=== PATIENT | female | born 2000 | race Two or more races ===

== ENCOUNTER 2024-06-09 14:05 | Outpatient (AMB) | payer BC, SELFPAY ==
--- NOTE | 2024-06-09 14:06 | AMB.OBINITIA ---
Vital Signs 06/09/24 14:17 Height 1.63 m Height Method Stated Weight 105.007 kg Weight Measurement Method Standing Scale BMI 39.7 BP 137/88 H Blood Pressure Source Automatic Cuff Blood Pressure Location Left Upper Arm Position Sitting Respiration 17 Pulse 90 Pulse Source Monitor Temp 98.3 F Temp Source Oral Pulse Oximetry (%) 99 Oxygen Delivery Method Room Air Allergies/Home Meds Allergies & Medications Allergies No Known Allergies Allergy (Verified 06/10/24 06:09) Medication Reconciliation No Known Home Medications 06/09/24 [History Confirmed 06/09/24] Intake Visit Data Collection New Patient or Established: New Patient (never been to [facility]) Reason for Visit:: FIRST PART Seen by Clinical Staff ONLY (RN/MA): No Do You Feel Safe at Home: Yes Authorities Contacted: N/A PCP or OBGYN visit in last 3 months: Yes Date of Last PCP or OBGYN visit: 05/07/24 Hx Now: Yes Are you currently on any form of Control: No Last menstrual period: 03/10/24 Pain Present Currently: No Pain Scale Used: Frey-Valenzuela/Numerical Pain scale:: 0 Smoking Status Smoking Status: Never smoker Questionnaires Covid-19 Vaccine Questionnaire Has patient been vacinated for Covid-19 Have you been vacinated for Covid-19: No PHQ-9 PHQ-2 Over the last 2 weeks, how often have you been bothered by any of the following problems? 1. Little interest or pleasure in doing things: not at all 2. Feeling down, depressed, or hopeless: not at all Total score: 0 Depression screen completed yes Social History Living Situation History Marital Status: Single Lives With: Family Housing: House Tobacco History Smoking Status: Never smoker Alcohol History Alcohol Intake: Never Substance Use History Substance Use: NO Domestic Abuse History Do You Feel Safe at Home: Yes Past Medical History Past Medical History Have you ever been diagnosed with any of the following: Neurological Problems Cerebrovascular Accident (CVA): No Transient Ischemic Attacks (TIA): No Dementia: No Alzheimer's Disease: No Parkinson's Disease: No Brain Tumor: No Meningitis: No Seizures: No Epilepsy: No Multiple Sclerosis: No Cerebral Palsy: No Amyotrophic Lateral Sclerosis (ALS/Maliha Gehrig's): No Guillain-[place] Syndrome: No Spina Bifida: No Paralysis: No Peripheral Neuropathy: No Jasso's Palsy: No Subdural Hematoma: No Migraine: No Head Trauma: No Spinal Cord Injury: No Traumatic Brain Injury: No Cardiology Problems Myocardial Infarction: No Cardiac Arrhythmia: No Atrial Fibrillation: No Angina: No Heart Murmur: No Coronary Artery Disease: No Atherosclerotic Heart Disease: No Peripheral Vascular Disease: No Hypercholesterolemia: No Aneurysm: No Congestive Heart Failure: No Congenital Heart Disease: No Valvular Heart Disease: No Rheumatic Fever: No Cardiomyopathy: No Edema: No Pericarditis: No Cellulitis: No Deep Vein Thrombosis: No Hypertension: No Hypotension: No Varicose Veins: No OB Initial Visit Menstrual History Menstrual reliability: definite Flow: normal Menstrual regularity: regular Monthly: Yes Age at menarche: 10 On control pills at conception: No Date of positive home test: 05/07/24 Associated symptoms (LMP): Reports nausea, fatigue and breast tenderness Infection History & Risk Evaluation History of STDs: none HIV risk evaluation: low risk Hepatitis B risk evaluation: low risk Patient or partner has history of Genital Herpes: No Varicella/chicken pox status: unknown Genetic Screening & History Genetic Screening/Teratology Counseling - Includes patient, baby's father, or anyone in either family with: 1. Patient's age 35 years or older as of estimated date of delivery: No 2. Thalassemia (Maltese, Khmer, Mediterranean, or Background); MCV less than 80: No 3. Neural Tube Defect (Meningomyelocele, Spina Bifida, or Anencephaly): No 4. Congenital Heart Defect: No 5. Down Syndrome: No 6. Aden-Sachs (Ashkenazi Anabaptism, Cajun, Maltese Oelrichs): No 7. Darvin Disease (Ashkenazi Anabaptism): No 8. Familial Dysautonomia (Ashkenazi Anabaptism): No 9. Sickle Cell Disease or Trait (): No 10. Hemophilia or other blood disorders: No 11. Muscular Dystrophy: No 12. Cystic Fibrosis: No 13. Mcpherson's Chorea: No 14. Mental Retardation/Autism: No 15. Other inherited genetic or chromosomal disorder: No 16. Maternal Metabolic Disorder (EG,TYPE 1 Diabetes, PKU): No 17. Patient or baby's father had a child with defects not listed above: No 18. Recurrent loss or a stillbirth: No 19. Medications (including supplements, vitamins, herbs or otc drugs)/illicit/recreational drugs/alcohol since last menstrual period: No 20. Any other: No Infection History 1. Live with someone with TB or exposed to TB: No 2. Rash or viral illness since last menstrual period: No 3. Hepatitis B,C: No Other (see comments) Source: [employer] OB Flowsheet OB Flowsheet Initial Weight: Not Recorded Date <del>?</del> EGA Weight Edema CTX Effacement BP Fundal ht Pres Dilation Effacement Station Visit Note Alb Glu FHR Mov 06/09/24 <del>?</del> 8w 5d 105.007 kg 137/88 130 Review of Systems Constitutional Constitutional: Reports system reviewed and no additional complaints, except as documented, Reports fatigue and Reports lethargy Gastrointestinal Gastrointestinal: Reports nausea Endocrine Endocrine: Reports fatigue Exam General Limitations: no limitations General Appearance: alert, in no apparent distress, comfortable, cooperative, healthy appearing, well developed and well groomed Neck Neck exam: Present normal inspection, full ROM and trachea midline Chest Chest inspection: Present normal inspection and symmetric chest wall rise Resp Respiratory exam: Present normal lung sounds bilaterally Card Cardiovascular exam: Present regular rate, normal rhythm and normal heart sounds Abdominal Abdominal exam: Present soft and normal bowel sounds Bimanual exam: Present normal bimanual exam and uterine enlargement (10 week size. Adequate pelvis) Extremities Extremities exam: Present normal inspection and full ROM Psych Psychiatric exam: Present normal affect and normal mood Assessment & Plan Diagnosis / Problem List (1) : Status: Acute Additional Plan Follow Up: 4 Weeks Office Procedures OB Clinic LOC & Office Proc's Nursing/Assessment Patient Status: Initial/New Patient OB Clinic Nursing Assessment: Medication Reconciliation, Update PMH in EMR and Vital Signs OB Clinic Coordination of Care: Complex Care and Chronic Disease 1-5, Consent,records obtained, informed consent, Education Simp Pt/Fam, Lab and Imaging orders and Staff clarify orders Special Needs: Heart tones Miscellaneous Interventions: Pelvic/Pap Smear Set up New Patient Charge New Patient Point Assignment: [id number] New Patient Point Charge: PIPING DESIGNER Level 4 ([id number]) OB Ultrasound OB Ultrasound Indication(s):: viability Ultrasound technique:: transabdominal Gestational sac assessment: Presence, location, size, shape:: Intrauterine at 9 weeks with cardiac activity approximately 130s and a crown-rump length of 2.31 cm EDC 01/12/2025.
[2024-06-09 14:17] VITALS: BP 137/88; PULSE 90; RESP 17; TEMP 36.8; O2SAT 99; BMI 39.7
== END 2024-06-09 16:24 | disposition home or self-care (01) ==
PROVIDERS: Supervising Provider Obstetrics & Gynecology; Visit Provider Obstetrics & Gynecology
DX: Z34.91 Encounter for supervision of normal pregnancy, unspecified, first trimester (principal); Z3A.08 8 weeks gestation of pregnancy
CPT/HCPCS: 76801; 76805; 99204; Q0091; G0463

== ENCOUNTER → 2024-06-09 | Outpatient (CLI) | payer BC, SELFPAY ==
--- NOTE | 2024-06-09 16:04 | XR_ITS ---
Examination: Complete OB ultrasound, less than 14 weeks, transabdominal Date and time of exam: June 09, 2024 at 1700 hours INDICATIONS: Positive home test today, unknown size and dates Technique: Obstetrical ultrasound images less than 14 weeks performed via transabdominal imaging Findings: A normal shaped single intrauterine gestation is present in the uterus. pole 2.6 cm corresponds to 9 weeks 2 days gestational age Cardiac motion 189 BPM Adjacent subchorionic hemorrhage 16 x 15 x 21 mm Ultrasonographic survey of visible and placental structures unremarkable. Amniotic fluid volume appears appropriate for this estimated gestational age. Right ovary 5.4 cm arterial flow Left ovary 3.9 cm arterial flow IMPRESSION: Viable intrauterine gestation 9 weeks 2 days Consider short-term follow-up pelvic sonography given the subchorionic hemorrhage.
[2024-06-09 17:32] LABS: Collection Type, Urine Clean Catch
[2024-06-09 18:00] LABS: Basophils # (Auto) 0.1 Thou/mm3 (0.0-0.2); Basophils % (Auto) 1 % (0-2.5); Eosinophils # (Auto) 0.1 Thou/mm3 (0.0-0.5); Eosinophils % (Auto) 1 % (0-10); Hematocrit 41.2 % (36.0-46.0); Immature Granulocytes % (Auto) 0 % (0-0); Immature Granulocytes Auto 0.04 Thou/mm3 (0.00-0.00); Lymphocytes # (Auto) 3.1 Thou/mm3 (1.0-4.8); Lymphocytes % (Auto) 28 % (10-50); Mean Corpuscular Hemoglobin 28.3 pg (25.0-35.0); Mean Corpuscular Volume 83 fL (80-100); Monocytes # (Auto) 0.5 Thou/mm3 (0.0-0.8); Monocytes % (Auto) 5 % (0-12); Neutrophils # (Auto) 7.4 Thou/mm3 (1.8-7.7); Neutrophils % (Auto) 66 % (37-80); Nucleated Red Blood Cell % 0 /100 WBC (0); Platelet Count 368 Thou/mm3 (140-440); RDW Standard Deviation 37.2 fL (36.4-46.3); Red Blood Count 4.95 Miln/mm3 (4.00-5.20); White Blood Count 11.3 Thou/mm3 (3.6-11.0)
[2024-06-09 18:36] LABS: Hepatitis B Surface Antigen Non Reactive (Non React); Rubella, IgG Antibody Reactive (Immune)
[2024-06-09 18:39] LABS: Bilirubin,Urine Negative (Negative); Blood,Urine Negative (Negative); Clarity,Urine Clear (Clear/Hazy); Color,Urine Lt-Yellow (Lt Yel-Yel); Glucose, Urine Negative (Negative); Ketones,Urine 1+ (Negative); Leukocyte Esterase,Urine Negative (Negative); Nitrite,Urine Negative (Negative); Protein,Urine Negative (Neg - Trace); RBC,Urine 1 /hpf (0-3); Specific Gravity,Urine 1.016 (1.001-1.035); Squamous Epithelial Cell,Urine 1 /hpf (0-5); Urobilinogen,Urine Negative mg/dL (0.0-1.0); WBC,Urine 1 /hpf (0-5)
[2024-06-09 19:26] LABS: HIV (1&2) Antibody Rapid Non-Reactive
[2024-06-09 19:33] LABS: Beta HCG,Quantitative 163068 mIU/mL (<5.0); Glucose 86 mg/dL (74-106)
== END | disposition home or self-care (01) ==
LOC: CDIM 15:45
PROVIDERS: PCP Nurse Practitioner Family; Referring Provider Obstetrics & Gynecology; Visit Provider Obstetrics & Gynecology
DX: Z34.91 Encounter for supervision of normal pregnancy, unspecified, first trimester (principal)
CPT/HCPCS: 36415; 76801; 81001; 82947; 84702; 85025; 86703; 86762; 86850; 86900; 86901; 87086; 87340

== ENCOUNTER 2024-07-16 14:21 | Outpatient (AMB) | payer BC, SELFPAY ==
[2024-07-16 14:42] VITALS: BP 123/84; PULSE 110; RESP 18; TEMP 36.8; O2SAT 98; BMI 39.4
--- NOTE | 2024-07-16 14:42 | OBCLNT_ITS ---
Vital Signs 07/16/24 14:42 Height 1.63 m Height Method Stated Weight 104.78 kg Weight Measurement Method Standing Scale BMI 39.4 BP 123/84 Blood Pressure Source Automatic Cuff Blood Pressure Location Left Upper Arm Position Sitting Respiration 18 Pulse 110 H Pulse Source Monitor Temp 98.2 F Temp Source Oral Pulse Oximetry (%) 98 Oxygen Delivery Method Room Air Allergies/Home Meds Allergies & Medications Allergies No Known Allergies Allergy (Verified 07/16/24 14:43) Medication Reconciliation No Known Home Medications 06/09/24 [History Confirmed 07/16/24] Intake Visit Data Collection New Patient or Established: Established Patient (seen at [facility] within 3 years) Reason for Visit:: care Seen by Clinical Staff ONLY (RN/MA): No Butcherette Required: No Do You Feel Safe at Home: Yes Authorities Contacted: N/A PCP or OBGYN visit in last 3 months: Yes Date of Last PCP or OBGYN visit: 06/09/24 Hx Now: Yes Are you currently on any form of Control: No Last menstrual period: 03/10/24 Pain Present Currently: No Pain Scale Used: Frey-Valenzuela/Numerical Pain scale:: 0 Smoking Status Smoking Status: Never smoker Questionnaires Covid-19 Vaccine Questionnaire Has patient been vacinated for Covid-19 Have you been vacinated for Covid-19: No PHQ-9 PHQ-2 Over the last 2 weeks, how often have you been bothered by any of the following problems? 1. Little interest or pleasure in doing things: not at all 2. Feeling down, depressed, or hopeless: not at all Total score: 0 PHQ-9 3. Trouble falling or staying asleep, or sleeping too much: Not at all 4. Feeling tired or having little energy: Not at all 5. Poor appetite or overeating: Not at all 6. Feeling bad about yourself - or that you are a failure or have let yourself or your family down: Not at all 7. Trouble concentrating on things, such as reading the newspaper or watching television: Not at all 8. Moving or speaking so slowly that other people could have noticed? - Or the opposite - being so fidgety or restless that you have been moving around a lot more than usual: not at all 9. Thoughts that you would be better off or of hurting yourself in some way: Not at all Total score: 0 Source: Developed by Drs. Conrad Palomino, Dianne Joseph, Devendra Silverio and colleagues, with an educational caryn from [employer]. Depression screen completed yes Social History Living Situation History Lives With: Family Housing: House Tobacco History Smoking Status: Never smoker Second Hand Smoke Exposure: No Alcohol History Alcohol Intake: Never Substance Use History Substance Use: NO Domestic Abuse History Do You Feel Safe at Home: Yes Past Medical History Past Medical History Have you ever been diagnosed with any of the following: Neurological Problems Cerebrovascular Accident (CVA): No Transient Ischemic Attacks (TIA): No Dementia: No Alzheimer's Disease: No Parkinson's Disease: No Brain Tumor: No Meningitis: No Seizures: No Epilepsy: No Multiple Sclerosis: No Cerebral Palsy: No Amyotrophic Lateral Sclerosis (ALS/Maliha Gehrig's): No Guillain-[place] Syndrome: No Spina Bifida: No Paralysis: No Peripheral Neuropathy: No Jasso's Palsy: No Subdural Hematoma: No Migraine: No Head Trauma: No Spinal Cord Injury: No Traumatic Brain Injury: No Cardiology Problems Myocardial Infarction: No Cardiac Arrhythmia: No Atrial Fibrillation: No Angina: No Heart Murmur: No Coronary Artery Disease: No Atherosclerotic Heart Disease: No Peripheral Vascular Disease: No Hypercholesterolemia: No Aneurysm: No Congestive Heart Failure: No Congenital Heart Disease: No Valvular Heart Disease: No Rheumatic Fever: No Cardiomyopathy: No Edema: No Pericarditis: No Cellulitis: No Deep Vein Thrombosis: No Hypertension: No Hypotension: No Varicose Veins: No Visit CHLOÉ Calculator Estimated Delivery Date Method Current WG Current Estimate 01/14/25 Ultrasound #1 14w 0d Initial Weight: Not Recorded Date -?-?-?-?-?-?-?-?-?-?-?-?- EGA Weight Edema CTX Effacement BP Fundal ht Pres Dilation Effacement Station Visit Note Alb Glu FHR Mov 06/09/24 -?-?-?-?-?-?-?-?-?-?-?-?- 8w 5d 105.007 kg 137/88 130 07/16/24 -?-?-?-?-?-?-?-?-?-?-?-?- 14w 0d 104.78 kg 123/84 140 Results Objective Laboratory: Labs and US reviewed and on chart. NIPT offered Assessment & Plan Diagnosis / Problem List (1) : Status: Acute Qualifiers: Weeks of gestation: 14 weeks Qualified Code(s): Z3A.14 - 14 weeks gestation of Plan: Follow up in 4 weeks. Additional Plan Follow Up: 4 Weeks Office Procedures OB Clinic LOC & Office Proc's Nursing/Assessment Patient Status: Established Patient OB Clinic Nursing Assessment: Medication Reconciliation, Update PMH in EMR and Vital Signs OB Clinic Coordination of Care: Complex Care and Chronic Disease 1-5, Consent,records obtained, informed consent, Education Simp Pt/Fam and Staff clarify orders Special Needs: Heart tones Established Patient Charge Established Patient Point Assignment: 115 Established Patient Point Charge: EP Level 3 (80-115)
== END 2024-07-16 15:04 | disposition home or self-care (01) ==
LOC: HODSOBC 14:21
PROVIDERS: PCP Nurse Practitioner Family; Referring Provider Nurse Practitioner Family; Supervising Provider Obstetrics & Gynecology; Visit Provider Obstetrics & Gynecology
DX: Z34.92 Encounter for supervision of normal pregnancy, unspecified, second trimester (principal); Z3A.14 14 weeks gestation of pregnancy
CPT/HCPCS: 99213; G0463

== ENCOUNTER 2024-08-18 15:13 | Outpatient (AMB) | payer BC, SELFPAY ==
[2024-08-18 15:25] VITALS: BP 133/84; PULSE 16; RESP 81; TEMP 36.9; O2SAT 96; BMI 38.8
--- NOTE | 2024-08-18 15:25 | OBCLNT_ITS ---
Vital Signs 08/18/24 15:25 Height 1.63 m Height Method Stated Weight 103.136 kg Weight Measurement Method Standing Scale BMI 38.8 BP 133/84 H Blood Pressure Source Automatic Cuff Blood Pressure Location Left Upper Arm Position Sitting Respiration 81 H Pulse 16 L Pulse Source Monitor Temp 98.4 F Temp Source Oral Pulse Oximetry (%) 96 Oxygen Delivery Method Room Air Allergies/Home Meds Allergies & Medications Allergies No Known Allergies Allergy (Verified 08/18/24 15:26) Medication Reconciliation No Known Home Medications 06/09/24 [History Confirmed 08/18/24] Intake Visit Data Collection New Patient or Established: Established Patient (seen at [facility] within 3 years) Reason for Visit:: CARE Seen by Clinical Staff ONLY (RN/MA): No Landscape Crew Leader Required: No Do You Feel Safe at Home: Yes Authorities Contacted: N/A PCP or OBGYN visit in last 3 months: Yes Hx Now: Yes Are you currently on any form of Control: No Pain Present Currently: No Pain Scale Used: Frey-Valenzuela/Numerical Pain scale:: 0 Smoking Status Smoking Status: Never smoker Questionnaires Covid-19 Vaccine Questionnaire Has patient been vacinated for Covid-19 Have you been vacinated for Covid-19: No PHQ-9 PHQ-2 Over the last 2 weeks, how often have you been bothered by any of the following problems? 1. Little interest or pleasure in doing things: not at all 2. Feeling down, depressed, or hopeless: not at all Total score: 0 PHQ-9 3. Trouble falling or staying asleep, or sleeping too much: Not at all 4. Feeling tired or having little energy: Not at all 5. Poor appetite or overeating: Not at all 6. Feeling bad about yourself - or that you are a failure or have let yourself or your family down: Not at all 7. Trouble concentrating on things, such as reading the newspaper or watching television: Not at all 8. Moving or speaking so slowly that other people could have noticed? - Or the opposite - being so fidgety or restless that you have been moving around a lot more than usual: not at all 9. Thoughts that you would be better off or of hurting yourself in some way: Not at all Total score: 0 Source: Developed by Joseph Grayet B.W. Jake, Devendra Silverio and colleagues, with an educational caryn from [employer]. Depression screen completed yes Social History Living Situation History Lives With: Family Housing: House Tobacco History Smoking Status: Never smoker Second Hand Smoke Exposure: No Alcohol History Alcohol Intake: Never Substance Use History Substance Use: NO Domestic Abuse History Do You Feel Safe at Home: Yes Past Medical History Past Medical History Have you ever been diagnosed with any of the following: Neurological Problems Cerebrovascular Accident (CVA): No Transient Ischemic Attacks (TIA): No Dementia: No Alzheimer's Disease: No Parkinson's Disease: No Brain Tumor: No Meningitis: No Seizures: No Epilepsy: No Multiple Sclerosis: No Cerebral Palsy: No Amyotrophic Lateral Sclerosis (ALS/Maliha Gehrig's): No Guillain-[place]ls[place] Syndrome: No Spina Bifida: No Paralysis: No Peripheral Neuropathy: No Jasso's Palsy: No Subdural Hematoma: No Migraine: No Head Trauma: No Spinal Cord Injury: No Traumatic Brain Injury: No Cardiology Problems Myocardial Infarction: No Cardiac Arrhythmia: No Atrial Fibrillation: No Angina: No Heart Murmur: No Coronary Artery Disease: No Atherosclerotic Heart Disease: No Peripheral Vascular Disease: No Hypercholesterolemia: No Aneurysm: No Congestive Heart Failure: No Congenital Heart Disease: No Valvular Heart Disease: No Rheumatic Fever: No Cardiomyopathy: No Edema: No Pericarditis: No Cellulitis: No Deep Vein Thrombosis: No Hypertension: No Hypotension: No Varicose Veins: No Visit OB Visit Log OB Flowsheet Initial Weight: Not Recorded Date -?-?-?-?-?-?-?-?-?-?-?-?- EGA Weight Edema CTX Effacement BP Fundal ht Pres Dilation Effacement Station Visit Note Alb Glu FHR Mov 06/09/24 -?-?-?-?-?-?-?-?-?-?-?-?- 8w 5d 105.007 kg 137/88 130 07/16/24 -?-?-?-?-?-?-?-?-?-?-?-?- 14w 0d 104.78 kg 123/84 140 08/18/24 -?-?-?-?-?-?-?-?-?-?-?-?- 18w 5d 103.136 kg 133/84 20 150 active CHLOÉ Calculator Estimated Delivery Date Method Current WG Current Estimate 01/14/25 Ultrasound #1 18w 6d Comments: Labs [facility] 06/09/24 :A+/Ab screen-/RI/RPR NR/ HIV-/HepBSag-/ Hgb WNL Specific Issue/Plans BMI 39 Notes Visit Date: 08/18/24 Last Updated by: Mary Cunha (OB Clinic)MD Has structural survey scheduled. Declines NIPT. Office Procedures OB Clinic LOC & Office Proc's Nursing/Assessment Patient Status: Established Patient OB Clinic Nursing Assessment: Medication Reconciliation, Update PMH in EMR and Vital Signs OB Clinic Coordination of Care: Complex Care and Chronic Disease 1-5, Consent,records obtained, informed consent, Education Simp Pt/Fam and Staff clarify orders Special Needs: Heart tones Established Patient Charge Established Patient Point Assignment: 115 Established Patient Point Charge: EP Level 3 (80-115)
== END 2024-08-18 16:02 | disposition home or self-care (01) ==
LOC: HODSOBC 15:13
PROVIDERS: PCP Nurse Practitioner Family; Referring Provider Nurse Practitioner Family; Supervising Provider Obstetrics & Gynecology; Visit Provider Obstetrics & Gynecology
DX: Z34.92 Encounter for supervision of normal pregnancy, unspecified, second trimester (principal); Z3A.18 18 weeks gestation of pregnancy; Z53.29 Procedure and treatment not carried out because of patient's decision for other reasons
CPT/HCPCS: 99213; G0463

== ENCOUNTER → 2024-08-27 | Outpatient (CLI) | payer BC, SELFPAY ==
--- NOTE | 2024-08-27 14:00 | XR_ITS ---
Examination: Complete OB ultrasound greater than 14 weeks Date and time of exam: August 27, 2024 1405 hours INDICATIONS: Unknown size and dates Findings: Viable intrauterine single fetus with single amniotic sac presentation transverse head maternal right Cardiac motion 144 BPM Placenta posterior grade 1 Umbilical cord insertion seen Amniotic fluid index 16.5 cm spine anterior Cervix 3 cm Ovaries obscured by the fetus. Composite estimated gestational age based on BPD, head circumference, abdominal circumference, femur length is 20 weeks 3 days Estimated weight 348.6 g. Survey of intracranial anatomy, spinal anatomy, abdominal anatomy, four-chamber heart performed with no abnormalities identified. Impression: Viable intrauterine gestation transverse presentation.
== END | disposition home or self-care (01) ==
PROVIDERS: PCP Physician Assistant; Referring Provider Obstetrics & Gynecology; Visit Provider Obstetrics & Gynecology
DX: Z36.89 Encounter for other specified antenatal screening (principal); O32.2XX0 Maternal care for transverse and oblique lie, not applicable or unspecified; Z3A.20 20 weeks gestation of pregnancy
CPT/HCPCS: 76805

== ENCOUNTER 2024-09-17 14:53 | Outpatient (AMB) | payer BC, MEDICAID, SELFPAY ==
[2024-09-17 15:09] VITALS: BP 133/81; PULSE 98; RESP 18; TEMP 36.2; O2SAT 98; BMI 39.6
--- NOTE | 2024-09-17 15:09 | OBCLNT_ITS ---
Vital Signs 09/17/24 15:09 Height 1.63 m Height Method Stated Weight 105.29 kg Weight Measurement Method Standing Scale BMI 39.6 BP 133/81 H Blood Pressure Source Automatic Cuff Blood Pressure Location Left Upper Arm Position Sitting Respiration 18 Pulse 98 Pulse Source Monitor Temp 97.2 F Temp Source Oral Pulse Oximetry (%) 98 Oxygen Delivery Method Room Air Allergies/Home Meds Allergies & Medications Allergies No Known Allergies Allergy (Verified 09/17/24 15:10) Medication Reconciliation No Known Home Medications 06/09/24 [History Confirmed 09/17/24] Intake Visit Data Collection New Patient or Established: Established Patient (seen at [facility] within 3 years) Reason for Visit:: OBC Seen by Clinical Staff ONLY (RN/MA): No Boatswains Mate Required: No Do You Feel Safe at Home: Yes Authorities Contacted: N/A PCP or OBGYN visit in last 3 months: Yes Date of Last PCP or OBGYN visit: 08/18/24 Hx Now: Yes Are you currently on any form of Control: No Pain Present Currently: No Pain Scale Used: Frey-Valenzuela/Numerical Pain scale:: 0 Smoking Status Smoking Status: Never smoker Questionnaires Covid-19 Vaccine Questionnaire Has patient been vacinated for Covid-19 Have you been vacinated for Covid-19: Yes PHQ-9 PHQ-2 Over the last 2 weeks, how often have you been bothered by any of the following problems? 1. Little interest or pleasure in doing things: not at all 2. Feeling down, depressed, or hopeless: not at all Total score: 0 PHQ-9 3. Trouble falling or staying asleep, or sleeping too much: Not at all 4. Feeling tired or having little energy: Not at all 5. Poor appetite or overeating: Not at all 6. Feeling bad about yourself - or that you are a failure or have let yourself or your family down: Not at all 7. Trouble concentrating on things, such as reading the newspaper or watching television: Not at all 8. Moving or speaking so slowly that other people could have noticed? - Or the opposite - being so fidgety or restless that you have been moving around a lot more than usual: not at all 9. Thoughts that you would be better off or of hurting yourself in some way: Not at all Total score: 0 If you checked off any problems, how difficult have these problems made it for you to do your work, take care of things at home, or get along with other people?: not difficult at all Source: Developed by Drs. Conrad Palomino, Dianne Joseph, Devendra Silverio and colleagues, with an educational caryn from [employer]. 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 We will draw missing labs at [facility]. She had a structural survey here in [place] about 2 weeks ago we need to get a hold of the report. CHLOÉ Calculator Estimated Delivery Date Method Current WG Current Estimate 01/14/25 Ultrasound #1 23w 6d Comments: A +/ antibody screen negative/ hepatitis B surface antigen negative /HIV negative /rubella immune/ no RPR /need urine cx GC/Chlam negative Specific Issue/Plans BMI 39 Notes Visit Date: 08/18/24 Last Updated by: Mary Cunha (OB Clinic)MD Has structural survey scheduled. Declines NIPT. Office Procedures OB Clinic LOC & Office Proc's Nursing/Assessment Patient Status: Established Patient OB Clinic Nursing Assessment: Medication Reconciliation, Update PMH in EMR and Vital Signs OB Clinic Coordination of Care: Education Complex Pt/Fam, Consent,records obtained, informed consent, Results/Orders obtained and Staff clarify orders Special Needs: Heart tones Established Patient Charge Established Patient Point Assignment: 100 Established Patient Point Charge: EP Level 3 (80-115) Assessment & Plan Diagnosis / Problem List (1) : Status: Acute Qualifiers: Weeks of gestation: 23 weeks Qualified Code(s): Z3A.23 - 23 weeks gestation of Assessment and Plan: For [facility], need urinalysis, need RPR also Need SS report
== END 2024-09-17 15:50 | disposition home or self-care (01) ==
LOC: HODSOBC 14:53
PROVIDERS: PCP Obstetrics & Gynecology; Referring Provider Obstetrics & Gynecology; Supervising Provider Internal Medicine Infectious Disease; Visit Provider Obstetrics & Gynecology
DX: Z34.02 Encounter for supervision of normal first pregnancy, second trimester (principal); Z3A.23 23 weeks gestation of pregnancy
CPT/HCPCS: 99213; G0463

== ENCOUNTER → 2024-09-29 | Outpatient (CLI) | payer BC, MEDICAID, SELFPAY ==
[2024-09-29 12:14] LABS: Glucose, Fasting 89 mg/dL (74-106)
[2024-09-29 12:25] LABS: Glucose 1/2 Hour 113 mg/dL (110-170)
[2024-09-29 12:41] LABS: Syphilis Nonreactive (Nonreactive)
[2024-09-29 12:42] LABS: Hepatitis C Antibody Non Reactive (Non React)
[2024-09-29 13:06] LABS: Glucose 1 Hour 134 mg/dL (120-170)
[2024-09-29 15:37] LABS: Chlamydia trachomatis PCR Negative (Not Detect); Neisseria Gonorrhoeae DNA PCR Negative (Not Detect); Trichomonas Negative (Negative)
== END | disposition home or self-care (01) ==
PROVIDERS: PCP Physician Assistant; Referring Provider Obstetrics & Gynecology; Visit Provider Obstetrics & Gynecology
DX: Z34.90 Encounter for supervision of normal pregnancy, unspecified, unspecified trimester (principal)
CPT/HCPCS: 36415; 82951; 86780; 86803; 87086; 87491; 87591; 87661

== ENCOUNTER 2024-10-15 11:50 | Outpatient (AMB) | payer SELFPAY ==
--- NOTE | 2024-10-15 12:14 | OBCLNT_ITS ---
Vital Signs 10/15/24 12:15 Height 1.63 m Height Method Stated Weight 103.079 kg Weight Measurement Method Standing Scale BMI 38.7 BP 125/80 Blood Pressure Source Automatic Cuff Blood Pressure Location Right Upper Arm Position Sitting Respiration 17 Pulse 80 Pulse Source Monitor Temp 98.1 F Temp Source Temporal Artery Scan Pulse Oximetry (%) 97 Oxygen Delivery Method Room Air Allergies/Home Meds Allergies & Medications Allergies No Known Allergies Allergy (Verified 10/15/24 12:15) Medication Reconciliation No Known Home Medications 06/09/24 [History Confirmed 10/15/24] Intake Visit Data Collection New Patient or Established: Established Patient (seen at [facility] within 3 years) Reason for Visit:: OBC Seen by Clinical Staff ONLY (RN/MA): No Tobacco Stemmer Machine Required: No Do You Feel Safe at Home: Yes Authorities Contacted: N/A PCP or OBGYN visit in last 3 months: Yes Date of Last PCP or OBGYN visit: 09/17/24 Hx Now: Yes Are you currently on any form of Control: No Pain Present Currently: No Pain Scale Used: Frey-Valenzuela/Numerical Pain scale:: 0 Smoking Status Smoking Status: Never smoker Questionnaires Covid-19 Vaccine Questionnaire Has patient been vacinated for Covid-19 Have you been vacinated for Covid-19: No PHQ-9 PHQ-2 Over the last 2 weeks, how often have you been bothered by any of the following problems? 1. Little interest or pleasure in doing things: not at all 2. Feeling down, depressed, or hopeless: not at all Total score: 0 PHQ-9 3. Trouble falling or staying asleep, or sleeping too much: Not at all 4. Feeling tired or having little energy: Not at all 5. Poor appetite or overeating: Not at all 6. Feeling bad about yourself - or that you are a failure or have let yourself or your family down: Not at all 7. Trouble concentrating on things, such as reading the newspaper or watching television: Not at all 8. Moving or speaking so slowly that other people could have noticed? - Or the opposite - being so fidgety or restless that you have been moving around a lot more than usual: not at all 9. Thoughts that you would be better off or of hurting yourself in some way: Not at all Total score: 0 If you checked off any problems, how difficult have these problems made it for you to do your work, take care of things at home, or get along with other people?: not difficult at all Source: Developed by Drs. Conrad Palomino, Dianne Joseph, Devendra Silverio and colleagues, with an educational caryn from [employer]. 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 Past Medical History: No Hx Hypertension and No Hx Deep Vein Thrombosis Care OB Visit Log OB Flowsheet Initial Weight: 105 kg Date -?-?-?-?-?-?-?-?-?-?-?-?- EGA Weight BP Alb Glu CTX Pres Fundal ht FHR Mov Dilation Station Effacement Hx Notes Visit Note 06/09/24 -?-?-?-?-?-?-?-?-?-?-?-?- 8w 5d 105.007 kg (+6.633 g) 137/88 130 07/16/24 -?-?-?-?-?-?-?-?-?-?-?-?- 14w 0d 104.78 kg (-220.163 g) 123/84 140 08/18/24 -?-?-?-?-?-?-?-?-?-?-?-?- 18w 5d 103.136 kg (-1864.435 g) 133/84 20 150 active 09/17/24 -?-?-?-?-?-?-?-?-?-?-?-?- 23w 0d 105.29 kg (+290.128 g) 133/81 24 143 active Good movement no contractions bleeding. We will draw missing labs at [facility]. She had a structural survey here in [place] about 2 weeks ago we need to get a hold of the report. 10/15/24 -?-?-?-?-?-?-?-?-?-?-?-?- 27w 0d 103.079 kg (-1921.134 g) 125/80 27 144 active Good movement no contractions no loss of fluids CHLOÉ Calculator Estimated Delivery Date Method Current WG Current Estimate 01/14/25 Ultrasound #1 27w 0d Expected Delivery Route/Plan G1, P0 Specific Issue/Plans BMI 39 labs on the chart at [facility]. A positive\antibody negative\rubella immune\RPR nonreactive\hepatitis B surface antigen negative\hep C negative\HIV negative\Pap normal\GC chlamydia on Pap within normal limits\urinalysis normal Structural survey at [facility] August 27, 2024 within normal limits in our chart. 2-hour glucose challenge test done 09/29/2024 at [facility] and within normal limits Notes Visit Date: 08/18/24 Last Updated by: Mary Cunha (OB Clinic)MD Has structural survey scheduled. Declines NIPT. Office Procedures OB Clinic LOC & Office Proc's Nursing/Assessment Patient Status: Established Patient OB Clinic Nursing Assessment: Medication Reconciliation, Update PMH in EMR and Vital Signs OB Clinic Coordination of Care: Complex Care and Chronic Disease 1-5, Consent,records obtained, informed consent, Education Simp Pt/Fam and Staff clarify orders Special Needs: Heart tones Established Patient Charge Established Patient Point Assignment: 115 Established Patient Point Charge: EP Level 3 (80-115)
[2024-10-15 12:15] VITALS: BP 125/80; PULSE 80; RESP 17; TEMP 36.7; O2SAT 97; BMI 38.7
== END 2024-10-15 12:35 | disposition home or self-care (01) ==
LOC: HODSOBC 11:50
PROVIDERS: Supervising Provider Obstetrics & Gynecology; Visit Provider Obstetrics & Gynecology
DX: Z34.02 Encounter for supervision of normal first pregnancy, second trimester (principal); Z3A.27 27 weeks gestation of pregnancy
CPT/HCPCS: 99213; G0463

== ENCOUNTER 2024-11-17 13:29 | Outpatient (AMB) | payer MEDICAID, SELFPAY ==
[2024-11-17 13:48] VITALS: BP 123/81; PULSE 88; RESP 17; TEMP 36.9; O2SAT 98; BMI 39.1
--- NOTE | 2024-11-17 13:48 | AMB.OBVISIT ---
Vital Signs 11/17/24 13:48 Height 1.63 m Height Method Measured Weight 103.873 kg Weight Measurement Method Standing Scale BMI 39.1 BP 123/81 Blood Pressure Source Automatic Cuff Blood Pressure Location Right Upper Arm Position Sitting Respiration 17 Pulse 88 Pulse Source Monitor Temp 98.4 F Temp Source Temporal Artery Scan Pulse Oximetry (%) 98 Oxygen Delivery Method Room Air Allergies/Home Meds Allergies & Medications Allergies No Known Allergies Allergy (Verified 11/17/24 13:49) Medication Reconciliation vits no.126-ferrous fum 28 mg iron-folic acid 800 mcg tablet (Classic ) tab PO 11/17/24 [History Confirmed 11/17/24] Intake Visit Data Collection New Patient or Established: Established Patient (seen at [facility] within 3 years) Reason for Visit:: OBC Consent obtained for Telemed Visit: No Seen by Clinical Staff ONLY (RN/MA): No 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 1. Little interest or pleasure in doing things: not at all PHQ-9 8. Moving or speaking so slowly that other people could have noticed? - Or the opposite - being so fidgety or restless that you have been moving around a lot more than usual: not at all Source: Developed by Drs. Conrad Palomino, Dianne Joseph, Devendra Silverio and colleagues, with an educational caryn from [employer]. 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 We will draw missing labs at [facility]. She had a structural survey here in [place] about 2 weeks ago we need to get a hold of the report. 10/15/24 <del>?</del> 27w 0d 103.079 kg (-1921.134 g) 125/80 27 144 active Good movement no contractions no loss of fluids 11/17/24 <del>?</del> 31w 5d 103.873 kg (-1127.348 g) 123/81 32 143 active movement no contractions no vaginal bleeding no loss of fluids CHLOÉ Calculator Estimated Delivery Date Method Current WG Current Estimate 01/14/25 Ultrasound #1 31w 5d Expected Delivery Route/Plan G1, P0 Specific Issue/Plans BMI 39 labs on the chart at [facility]. A positive\antibody negative\rubella immune\RPR nonreactive\hepatitis B surface antigen negative\hep C negative\HIV negative\Pap normal\GC chlamydia on Pap within normal limits\urinalysis normal Structural survey at [facility] August 27, 2024 within normal limits in our chart. 2-hour glucose challenge test done 09/29/2024 at [facility] and within normal limits Notes Visit Date: 08/18/24 Last Updated by: Mary Cunha (OB Clinic)MD Has structural survey scheduled. Declines NIPT. Office Procedures OB Clinic LOC & Office Proc's Nursing/Assessment Patient Status: Established Patient OB Clinic Nursing Assessment: Medication Reconciliation, Update PMH in EMR and Vital Signs OB Clinic Coordination of Care: Complex Care and Chronic Disease 1-5, Consent,records obtained, informed consent, Education Simp Pt/Fam and 4+ Authorizations needed Special Needs: Heart tones Established Patient Charge Established Patient Point Assignment: 130 Established Patient Point Charge: EP Level 4 (120-155) Assessment & Plan Diagnosis / Problem List (1) : Status: Acute Qualifiers: Weeks of gestation: 31 weeks Qualified Code(s): Z3A.31 - 31 weeks gestation of
== END 2024-11-17 15:20 | disposition home or self-care (01) ==
LOC: HODSOBC 13:29
PROVIDERS: PCP Obstetrics & Gynecology; Referring Provider Obstetrics & Gynecology; Supervising Provider Obstetrics & Gynecology; Visit Provider Obstetrics & Gynecology
DX: Z34.03 Encounter for supervision of normal first pregnancy, third trimester (principal); Z3A.31 31 weeks gestation of pregnancy
CPT/HCPCS: 99214; G0463

== ENCOUNTER 2024-12-03 13:26 | Outpatient (AMB) | payer MEDICAID, SELFPAY ==
[2024-12-03 13:39] VITALS: BP 121/80; PULSE 86; RESP 17; TEMP 36.3; O2SAT 98; BMI 39.2
--- NOTE | 2024-12-03 13:39 | OBCLNT_ITS ---
Vital Signs 12/03/24 13:39 Height 1.63 m Height Method Measured Weight 104.383 kg Weight Measurement Method Standing Scale BMI 39.2 BP 121/80 Blood Pressure Source Automatic Cuff Blood Pressure Location Right Upper Arm Position Sitting Respiration 17 Pulse 86 Pulse Source Monitor Temp 97.4 F Temp Source Temporal Artery Scan Pulse Oximetry (%) 98 Oxygen Delivery Method Room Air Allergies/Home Meds Allergies & Medications Allergies No Known Allergies Allergy (Verified 12/03/24 13:40) Medication Reconciliation vits no.126-ferrous fum 28 mg iron-folic acid 800 mcg tablet (Classic ) tab PO 11/17/24 [History Confirmed 12/03/24] Intake Visit Data Collection New Patient or Established: Established Patient (seen at [facility] within 3 years) Reason for Visit:: OBC Consent obtained for Telemed Visit: No Seen by Clinical Staff ONLY (RN/MA): No Social Insurance Analyst Required: No Do You Feel Safe at Home: Yes Authorities Contacted: N/A PCP or OBGYN visit in last 3 months: Yes Date of Last PCP or OBGYN visit: 11/17/24 Hx Now: Yes Are you currently on any form of Control: No Pain Present Currently: No Pain Scale Used: Frey-Valenzuela/Numerical Pain scale:: 0 Smoking Status Smoking Status: Never smoker Questionnaires Covid-19 Vaccine Questionnaire Has patient been vacinated for Covid-19 Have you been vacinated for Covid-19: No PHQ-9 PHQ-2 Over the last 2 weeks, how often have you been bothered by any of the following problems? 1. Little interest or pleasure in doing things: not at all PHQ-9 8. Moving or speaking so slowly that other people could have noticed? - Or the opposite - being so fidgety or restless that you have been moving around a lot more than usual: not at all Source: Developed by Drs. Conrad Palomino, Dianne Joseph, Devendra Silverio and colleagues, with an educational caryn from [employer]. 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 Past Medical History: No Hx Hypertension and No Hx Deep Vein Thrombosis Care OB Visit Log OB Flowsheet Initial Weight: 105 kg Date -?-?-?-?-?-?-?-?-?-?-?-?- EGA Weight BP Alb Glu CTX Pres Fundal ht FHR Mov Dilation Station Effacement Hx Notes Visit Note 06/09/24 -?-?-?-?-?-?-?-?-?-?-?-?- 8w 5d 105.007 kg (+6.633 g) 137/88 130 07/16/24 -?-?-?-?-?-?-?-?-?-?-?-?- 14w 0d 104.78 kg (-220.163 g) 123/84 140 08/18/24 -?-?-?-?-?-?-?-?-?-?-?-?- 18w 5d 103.136 kg (-1864.435 g) 133/84 20 150 active 09/17/24 -?-?-?-?--?-?-?-?-?-?-?-?- 23w 0d 105.29 kg (+290.128 g) 133/81 24 143 active Good movement no contractions bleeding. We will draw missing labs at [facility]. She had a structural survey here in [place] about 2 weeks ago we need to get a hold of the report. 10/15/24 -?-?-?-?-?-?-?-?-?-?-?-?- 27w 0d 103.079 kg (-1921.134 g) 125/80 27 144 active Good movement no contractions no loss of fluids 11/17/24 -?-?-?-?-?-?-?-?-?-?-?-?- 31w 5d 103.873 kg (-1127.348 g) 123/81 32 143 active movement no contractions no vaginal bleeding no loss of fluids 12/03/24 -?-?-?-?-?-?-?-?-?-?-?-?- 34w 0d 104.383 kg (-617.056 g) 121/80 36 137 active Order ultrasound for size greater than dates Good movem ent no loss of fluids no contractions no vaginal bleeding CHLOÉ Calculator Estimated Delivery Date Method Current WG Current Estimate 01/14/25 Ultrasound #1 34w 0d Expected Delivery Route/Plan G1, P0 Specific Issue/Plans BMI 39 labs on the chart at [facility]. A positive\antibody negative\rubella immune\RPR nonreactive\hepatitis B surface antigen negative\hep C negative\HIV negative\Pap normal\GC chlamydia on Pap within normal limits\urinalysis normal Structural survey at [facility] August 27, 2024 within normal limits in our chart. 2-hour glucose challenge test done 09/29/2024 at [facility] and within normal limits Notes Visit Date: 08/18/24 Last Updated by: Mary Cunha (OB Clinic)MD Has structural survey scheduled. Declines NIPT. Office Procedures OB Clinic LOC & Office Proc's Nursing/Assessment Patient Status: Established Patient OB Clinic Nursing Assessment: Medication Reconciliation, Update PMH in EMR and Vital Signs OB Clinic Coordination of Care: Complex Care and Chronic Disease 1-5, Consent,records obtained, informed consent, Education Simp Pt/Fam and 4+ Authorizations needed Special Needs: Heart tones Established Patient Charge Established Patient Point Assignment: 130 Established Patient Point Charge: EP Level 4 (120-155) Assessment & Plan Diagnosis / Problem List (1) : Status: Acute Qualifiers: Weeks of gestation: 33 weeks Qualified Code(s): Z3A.33 - 33 weeks gestation of Assessment and Plan: Discussed labor. Patient will go with flow. She is not opposed to epidural. Probably she will only have the father the baby there with her. She is planning on breast-feeding. I did order an ultrasound for size greater than dates. She has dignity insurance and we apparently have to authorize for the ultrasound.
== END 2024-12-03 14:14 | disposition home or self-care (01) ==
LOC: HODSOBC 13:26
PROVIDERS: Supervising Provider Obstetrics & Gynecology; Visit Provider Obstetrics & Gynecology
DX: Z34.03 Encounter for supervision of normal first pregnancy, third trimester (principal); Z3A.34 34 weeks gestation of pregnancy
CPT/HCPCS: 99214; G0463

== ENCOUNTER 2024-12-17 14:31 | Outpatient (AMB) | payer MEDICAID, SELFPAY ==
[2024-12-17 14:59] VITALS: BP 128/80; PULSE 87; RESP 16; TEMP 36.8; O2SAT 99; BMI 39.9
--- NOTE | 2024-12-17 14:59 | OBCLNT_ITS ---
Vital Signs 12/17/24 14:59 Height 1.63 m Height Method Stated Weight 106.197 kg Weight Measurement Method Standing Scale BMI 39.9 BP 128/80 Blood Pressure Source Automatic Cuff Blood Pressure Location Left Upper Arm Position Sitting Respiration 16 Pulse 87 Pulse Source Monitor Temp 98.2 F Temp Source Oral Pulse Oximetry (%) 99 Oxygen Delivery Method Room Air Allergies/Home Meds Allergies & Medications Allergies No Known Allergies Allergy (Verified 12/17/24 15:02) Medication Reconciliation vits no.126-ferrous fum 28 mg iron-folic acid 800 mcg tablet (Classic ) tab PO 11/17/24 [History Confirmed 12/17/24] Intake Visit Data Collection New Patient or Established: Established Patient (seen at [facility] within 3 years) Reason for Visit:: CARE Seen by Clinical Staff ONLY (RN/MA): No Flight Security Specialist Required: No Do You Feel Safe at Home: Yes Authorities Contacted: N/A PCP or OBGYN visit in last 3 months: Yes Hx Now: Yes Are you currently on any form of Control: No Pain Present Currently: No Pain Scale Used: Frey-Valenzuela/Numerical Pain scale:: 0 Smoking Status Smoking Status: Never smoker Questionnaires Covid-19 Vaccine Questionnaire Has patient been vacinated for Covid-19 Have you been vacinated for Covid-19: Yes PHQ-9 PHQ-2 Over the last 2 weeks, how often have you been bothered by any of the following problems? 1. Little interest or pleasure in doing things: not at all 2. Feeling down, depressed, or hopeless: not at all Total score: 0 PHQ-9 3. Trouble falling or staying asleep, or sleeping too much: Not at all 4. Feeling tired or having little energy: Not at all 5. Poor appetite or overeating: Not at all 6. Feeling bad about yourself - or that you are a failure or have let yourself or your family down: Not at all 7. Trouble concentrating on things, such as reading the newspaper or watching television: Not at all 8. Moving or speaking so slowly that other people could have noticed? - Or the opposite - being so fidgety or restless that you have been moving around a lot more than usual: not at all 9. Thoughts that you would be better off or of hurting yourself in some way: Not at all Total score: 0 Source: Developed by Drs. Conrad Palomino, Dianne Joseph, Devendra Silverio and colleagues, with an educational caryn from [employer] 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 Past Medical History: No Hx Hypertension and No Hx Deep Vein Thrombosis Care OB Visit Log OB Flowsheet Initial Weight: 105 kg Date -?-?-?-?-?-?-?-?-?-?-?-?- EGA Weight BP Alb Glu CTX Pres Fundal ht FHR Mov Dilation Station Effacement Hx Notes Visit Note 06/09/24 -?-?-?-?-?-?-?-?-?-?-?-?- 8w 5d 105.007 kg (+6.633 g) 137/88 130 07/16/24 -?-?-?-?-?-?-?-?-?-?-?-?- 14w 0d 104.78 kg (-220.163 g) 123/84 140 08/18/24 -?-?-?-?-?-?-?-?-?-?-?-?- 18w 5d 103.136 kg (-1864.435 g) 133/84 20 150 active 09/17/24 -?-?-?-?-?-?-?-?-?-?-?-?- 23w 0d 105.29 kg (+290.128 g) 133/81 24 143 active Good movement no contractions bleeding. We will draw missing labs at [facility]. She had a structural survey here in [place] about 2 weeks ago we need to get a hold of the report. 10/15/24 -?-?-?-?-?-?-?-?-?-?-?-?- 27w 0d 103.079 kg (-1921.134 g) 125/80 27 144 active Good movement no contractions no loss of fluids 11/17/24 -?-?-?-?-?-?-?-?-?-?-?-?- 31w 5d 103.873 kg (-1127.348 g) 123/81 32 143 active movement no contractions no vaginal bleeding no loss of fluids 12/03/24 -?-?-?-?-?-?-?-?-?-?-?-?- 34w 0d 104.383 kg (-617.056 g) 121/80 36 137 active Order ultrasound for size greater than dates Good movem ent no loss of fluids no contractions no vaginal bleeding 12/17/24 -?-?-?-?-?-?-?-?-?-?-?-?- 36w 0d 106.197 kg (+1197.313 g) 128/80 occasional 35 143 activ e Good movement no contractions no loss of fluids. Check ultrasound size greater than dates. Group B strep performed. CHLOÉ Calculator Estimated Delivery Date Method Current WG Current Estimate 01/14/25 Ultrasound #1 36w 3d Expected Delivery Route/Plan G1, P0 Specific Issue/Plans BMI 39 labs on the chart at [facility]. A + \antibody negative\rubella immune\RPR nonreactive\hepatitis B surface antigen negative\hep C negative\HIV negative\Pap normal\GC chlamydia on Pap within normal limits\urinalysis normal Structural survey at [facility] August 27, 2024 within normal limits in our chart. 2-hour glucose challenge test done 09/29/2024 at [facility] and within normal limits Notes Visit Date: 12/17/24 Last Updated by: Mary Cunha (OB Clinic)MD Discussed labor. Patient will go with flow but is leaning towards no epidural. Patient has a large fundal height. Suspected 8 to 8 and half pound baby at her due date. Visit Date: 08/18/24 Last Updated by: Mary Cunha (OB Clinic)MD Has structural survey scheduled. Declines NIPT. Office Procedures OB Clinic LOC & Office Proc's Nursing/Assessment Patient Status: Established Patient OB Clinic Nursing Assessment: Medication Reconciliation, Update PMH in EMR and Vital Signs OB Clinic Coordination of Care: Complex Care and Chronic Disease 1-5, Consent,records obtained, informed consent, Education Simp Pt/Fam, Lab and Imaging orders, Results/Orders obtained and Staff clarify orders Special Needs: Heart tones Miscellaneous Interventions: Culture Specimen Collection Established Patient Charge Established Patient Point Assignment: 150 Established Patient Point Charge: EP Level 4 (120-155) Assessment & Plan Diagnosis / Problem List (1) : Status: Acute Qualifiers: Weeks of gestation: 36 weeks Qualified Code(s): Z3A.36 - 36 weeks gestation of Plan: Ultrasound size greater than dates. Group B strep done. Additional Plan Follow Up: 1 Week
== END 2024-12-17 15:28 | disposition home or self-care (01) ==
LOC: HODSOBC 14:31
PROVIDERS: Supervising Provider Obstetrics & Gynecology; Visit Provider Obstetrics & Gynecology
DX: Z34.03 Encounter for supervision of normal first pregnancy, third trimester (principal); Z36.85 Encounter for antenatal screening for Streptococcus B; Z3A.36 36 weeks gestation of pregnancy
CPT/HCPCS: 99214; G0463

== ENCOUNTER → 2024-12-22 | Outpatient (CLI) | payer MEDICAID, SELFPAY ==
--- NOTE | 2024-12-22 15:30 | XR_ITS ---
Examination: Complete OB ultrasound greater than 14 weeks Date and time of exam: December 22, 2024, 1537 hours INDICATIONS: Labor evaluation, unknown size and dates. Findings: Viable intrauterine single fetus with single amniotic sac presentation cephalic. Cardiac motion 155 BPM. Placenta maternal right and grade 2. Umbilical cord insertion seen. Amniotic fluid index 8.6 cm. spine maternal right Cervix 3.5 cm Ovaries obscured by bowel gas. Composite estimated gestational age based on BPD, head circumference, abdominal circumference, femur length is 36 weeks 3 days, estimated weight 2881.5 g. Survey of intracranial anatomy, spinal anatomy, abdominal anatomy, four-chamber heart performed with no abnormalities identified. Impression: Viable intrauterine gestation cephalic presentation Estimated weight 2881.5 g.
== END | disposition home or self-care (01) ==
PROVIDERS: PCP Physician Assistant; Referring Provider Obstetrics & Gynecology; Visit Provider Obstetrics & Gynecology
DX: O26.843 Uterine size-date discrepancy, third trimester (principal); Z3A.36 36 weeks gestation of pregnancy
CPT/HCPCS: 76805

== ENCOUNTER 2024-12-30 15:25 | Outpatient (AMB) | payer MEDICAID, SELFPAY ==
[2024-12-30 15:34] VITALS: BP 132/85; PULSE 102; RESP 16; TEMP 36.8; O2SAT 102; BMI 40.1
--- NOTE | 2024-12-30 15:34 | OBCLNT_ITS ---
Vital Signs 12/30/24 15:34 Height 1.63 m Height Method Stated Weight 106.821 kg Weight Measurement Method Standing Scale BMI 40.1 BP 132/85 H Blood Pressure Source Automatic Cuff Blood Pressure Location Left Upper Arm Position Sitting Respiration 16 Pulse 102 H Pulse Source Monitor Temp 98.2 F Temp Source Oral Pulse Oximetry (%) 102 H Oxygen Delivery Method Room Air Allergies/Home Meds Allergies & Medications Allergies No Known Allergies Allergy (Verified 12/30/24 15:35) Medication Reconciliation vits no.126-ferrous fum 28 mg iron-folic acid 800 mcg tablet (Classic ) tab PO 11/17/24 [History Confirmed 12/30/24] Intake Visit Data Collection New Patient or Established: Established Patient (seen at [facility] within 3 years) Reason for Visit:: OBC Seen by Clinical Staff ONLY (RN/MA): No Riprap Man Required: No Do You Feel Safe at Home: Yes Authorities Contacted: N/A PCP or OBGYN visit in last 3 months: Yes Date of Last PCP or OBGYN visit: 12/17/24 Hx Now: Yes Are you currently on any form of Control: No Pain Present Currently: No Pain Location: Abdomen Pain Scale Used: Frey-Valenzuela/Numerical Pain scale:: 0 Smoking Status Smoking Status: Never smoker Questionnaires Covid-19 Vaccine Questionnaire Has patient been vacinated for Covid-19 Have you been vacinated for Covid-19: Yes PHQ-9 PHQ-2 Over the last 2 weeks, how often have you been bothered by any of the following problems? 1. Little interest or pleasure in doing things: not at all 2. Feeling down, depressed, or hopeless: not at all Total score: 0 PHQ-9 3. Trouble falling or staying asleep, or sleeping too much: Not at all 4. Feeling tired or having little energy: Not at all 5. Poor appetite or overeating: Not at all 6. Feeling bad about yourself - or that you are a failure or have let yourself or your family down: Not at all 7. Trouble concentrating on things, such as reading the newspaper or watching television: Not at all 8. Moving or speaking so slowly that other people could have noticed? - Or the opposite - being so fidgety or restless that you have been moving around a lot more than usual: not at all 9. Thoughts that you would be better off or of hurting yourself in some way: Not at all Total score: 0 If you checked off any problems, how difficult have these problems made it for you to do your work, take care of things at home, or get along with other people?: not difficult at all Source: Developed by Drs. Conrad Palomino, Dianne Joseph, Devendra Silverio and colleagues, with an educational caryn from [employer]. 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 Medical History Past Medical History: No Hx Hypertension and No Hx Deep Vein Thrombosis Care OB Visit Log OB Flowsheet Initial Weight: 105 kg Date -?-?-?-?-?-?-?-?-?-?-?-?- EGA Weight BP Alb Glu CTX Pres Fundal ht FHR Mov Dilation Station Effacement Hx Notes Visit Note 06/09/24 -?-?-?-?-?-?-?-?-?-?-?-?- 8w 5d 105.007 kg (+6.633 g) 137/88 130 07/16/24 -?-?-?-?-?-?-?-?-?-?-?-?- 14w 0d 104.78 kg (-220.163 g) 123/84 140 08/18/24 -?-?-?-?-?-?-?-?-?-?-?-?- 18w 5d 103.136 kg (-1864.435 g) 133/84 20 150 active 09/17/24 -?-?-?-?-?-?-?-?-?-?-?-?- 23w 0d 105.29 kg (+290.128 g) 133/81 24 143 active Good movement no contractions bleeding. We will draw missing labs at [facility]. She had a structural survey here in [place] about 2 weeks ago we need to get a hold of the report. 10/15/24 -?-?-?-?-?-?-?-?-?-?-?-?- 27w 0d 103.079 kg (-1921.134 g) 125/80 27 144 active Good movement no contractions no loss of fluids 11/17/24 -?-?-?-?-?-?-?-?-?-?-?-?- 31w 5d 103.873 kg (-1127.348 g) 123/81 32 143 active movement no contractions no vaginal bleeding no loss of fluids 12/03/24 -?-?-?-?-?-?-?-?-?-?-?-?- 34w 0d 104.383 kg (-617.056 g) 121/80 36 137 active Order ultrasound for size greater than dates Good movem ent no loss of fluids no contractions no vaginal bleeding 12/17/24 -?-?-?-?-?-?-?-?-?-?-?-?- 36w 0d 106.197 kg (+1197.313 g) 128/80 occasional 35 143 activ e Good movement no contractions no loss of fluids. Check ultrasound size greater than dates. Group B strep performed. 12/30/24 -?-?-?-?-?-?-?-?-?-?-?-?- 37w 6d 106.821 kg (+1821.003 g) 132/85 occasional cephalic 38 156 active 3 -2 80 +FM No UCs, No LOF GBBS- CHLOÉ Calculator Estimated Delivery Date Method Current WG Current Estimate 01/14/25 Ultrasound #1 38w 2d Expected Delivery Route/Plan G1, P0 Specific Issue/Plans BMI 39 labs on the chart at [facility]. A + \antibody negative\rubella immune\RPR nonreactive\hepatitis B surface antigen negative\hep C negative\HIV negative\Pap normal\GC chlamydia on Pap within normal limits\urinalysis normal Structural survey at [facility] August 27, 2024 within normal limits in our chart. 2-hour glucose challenge test done 09/29/2024 at [facility] and within normal limits Notes Visit Date: 12/30/24 Last Updated by: Mary Cunha ( Clinic)MD Discussed labor. Patient will go with flow. Plan will be to strip membranes next week at 39 weeks. Visit Date: 12/17/24 Last Updated by: Mary Cunha (OB Clinic)MD Discussed labor. Patient will go with flow but is leaning towards no epidural. Patient has a large fundal height. Suspected 8 to 8 and half pound baby at her due date. Visit Date: 08/18/24 Last Updated by: Mary Cunha (OB Clinic)MD Has structural survey scheduled. Declines NIPT. Office Procedures OB Clinic LOC & Office Proc's Nursing/Assessment Patient Status: Established Patient OB Clinic Nursing Assessment: Medication Reconciliation, Update PMH in EMR and Vital Signs OB Clinic Coordination of Care: Education Complex Pt/Fam, Consent,records obtained, informed consent and Staff clarify orders Special Needs: Heart tones Established Patient Charge Established Patient Point Assignment: 95 Established Patient Point Charge: EP Level 3 (80-115) Assessment & Plan Diagnosis / Problem List (1) : Status: Acute Qualifiers: Weeks of gestation: 37 weeks Qualified Code(s): Z3A.37 - 37 weeks gestation of
== END 2024-12-30 15:57 | disposition home or self-care (01) ==
LOC: HODSOBC 15:25
PROVIDERS: Supervising Provider Obstetrics & Gynecology; Visit Provider Obstetrics & Gynecology
DX: Z34.03 Encounter for supervision of normal first pregnancy, third trimester (principal); Z3A.37 37 weeks gestation of pregnancy
CPT/HCPCS: 99213; G0463

== ENCOUNTER 2025-01-05 14:00 | Outpatient (AMB) | payer MEDICAID, SELFPAY ==
[2025-01-05 14:11] VITALS: BP 142/89; PULSE 97; RESP 16; TEMP 36.8; O2SAT 98; BMI 40.1
--- NOTE | 2025-01-05 14:11 | AMB.OBVISIT ---
Vital Signs 01/05/25 14:11 Height 1.63 m Height Method Stated Weight 106.821 kg Weight Measurement Method Standing Scale BMI 40.1 BP 142/89 H Blood Pressure Source Automatic Cuff Blood Pressure Location Left Upper Arm Position Sitting Respiration 16 Pulse 97 Pulse Source Monitor Temp 98.2 F Temp Source Oral Pulse Oximetry (%) 98 Oxygen Delivery Method Room Air Allergies/Home Meds Allergies & Medications Allergies No Known Allergies Allergy (Verified 01/05/25 14:12) Medication Reconciliation vits no.126-ferrous fum 28 mg iron-folic acid 800 mcg tablet (Classic ) tab PO 11/17/24 [History Confirmed 01/05/25] Intake Visit Data Collection New Patient or Established: Established Patient (seen at [facility] within 3 years) Reason for Visit:: OBC Seen by Clinical Staff ONLY (RN/MA): No Efficiency Engineer Required: No Do You Feel Safe at Home: Yes Authorities Contacted: N/A PCP or OBGYN visit in last 3 months: Yes Date of Last PCP or OBGYN visit: 12/30/24 Hx Now: Yes Are you currently on any form of Control: No Pain Present Currently: No Pain Scale Used: Frey-Valenzuela/Numerical Pain scale:: 0 Smoking Status Smoking Status: Never smoker Questionnaires Covid-19 Vaccine Questionnaire Has patient been vacinated for Covid-19 Have you been vacinated for Covid-19: Yes PHQ-9 PHQ-2 Over the last 2 weeks, how often have you been bothered by any of the following problems? 1. Little interest or pleasure in doing things: not at all 2. Feeling down, depressed, or hopeless: not at all Total score: 0 PHQ-9 3. Trouble falling or staying asleep, or sleeping too much: Not at all 4. Feeling tired or having little energy: Not at all 5. Poor appetite or overeating: Not at all 6. Feeling bad about yourself - or that you are a failure or have let yourself or your family down: Not at all 7. Trouble concentrating on things, such as reading the newspaper or watching television: Not at all 8. Moving or speaking so slowly that other people could have noticed? - Or the opposite - being so fidgety or restless that you have been moving around a lot more than usual: not at all 9. Thoughts that you would be better off or of hurting yourself in some way: Not at all Total score: 0 If you checked off any problems, how difficult have these problems made it for you to do your work, take care of things at home, or get along with other people?: not difficult at all Source: Developed by Drs. Conrad Palomino, Dianne Joseph, Devendra Silverio and colleagues, with an educational caryn from [email or web address]. 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 We will draw missing labs at [facility]. She had a structural survey here in [place] about 2 weeks ago we need to get a hold of the report. 10/15/24 <del>?</del> 27w 0d 103.079 kg (-1921.134 g) 125/80 27 144 active Good movement no contractions no loss of fluids 11/17/24 <del>?</del> 31w 5d 103.873 kg (-1127.348 g) 123/81 32 143 active movement no contractions no vaginal bleeding no loss of fluids 12/03/24 <del>?</del> 34w 0d 104.383 kg (-617.056 g) 121/80 36 137 active Order ultrasound for size greater than dates Good movement no loss of fluids no contractions no vaginal bleeding 12/17/24 <del>?</del> 36w 0d 106.197 kg (+1197.313 g) 128/80 occasional 35 143 active Good movement no contractions no loss of fluids. Check ultrasound size greater than dates. Group B strep performed. 12/30/24 <del>?</del> 37w 6d 106.821 kg (+1821.003 g) 132/85 occasional cephalic 38 156 active 3 -2 80 +FM No UCs, No LOF GBBS- 01/05/25 <del>?</del> 38w 5d 106.821 kg (+1821.003 g) 142/89 CHLOÉ Calculator Estimated Delivery Date Method Current WG Current Estimate 01/14/25 Ultrasound #1 38w 5d Expected Delivery Route/Plan G1, P0 Specific Issue/Plans BMI 39 labs on the chart at [facility]. A + \antibody negative\rubella immune\RPR nonreactive\hepatitis B surface antigen negative\hep C negative\HIV negative\Pap normal\GC chlamydia on Pap within normal limits\urinalysis normal Structural survey at [facility] August 27, 2024 within normal limits in our chart. 2-hour glucose challenge test done 09/29/2024 at [facility] and within normal limits Notes Visit Date: 01/05/25 Last Updated by: Mary Cunha (OB Clinic)MD Labor precautions. kick counts. Stripped membranes today. According to ultrasound, 8 pound baby at the due date. According to [facility], 8 pound baby today, suspected 8-2 to 9 pound baby at due date. Adequate pelvic outlet. Visit Date: 12/30/24 Last Updated by: Mary Cunha (OB Clinic)MD Discussed labor. Patient will go with flow. Plan will be to strip membranes next week at 39 weeks. Visit Date: 12/17/24 Last Updated by: Mary Cunha (OB Clinic)MD Discussed labor. Patient will go with flow but is leaning towards no epidural. Patient has a large fundal height. Suspected 8 to 8 and half pound baby at her due date. Visit Date: 08/18/24 Last Updated by: Mary Cunha (OB Clinic)MD Has structural survey scheduled. Declines NIPT. Office Procedures OB Clinic LOC & Office Proc's Nursing/Assessment Patient Status: Established Patient OB Clinic Nursing Assessment: Medication Reconciliation, Update PMH in EMR and Vital Signs OB Clinic Coordination of Care: Education Complex Pt/Fam, Consent,records obtained, informed consent, Lab and Imaging orders and Staff clarify orders Special Needs: Heart tones Established Patient Charge Established Patient Point Assignment: 110 Established Patient Point Charge: EP Level 3 (80-115) Assessment & Plan Diagnosis / Problem List (1) : Status: Acute Qualifiers: Weeks of gestation: 38 weeks Qualified Code(s): Z3A.38 - 38 weeks gestation of
== END 2025-01-05 15:10 | disposition home or self-care (01) ==
LOC: HODSOBC 14:00
PROVIDERS: Supervising Provider Obstetrics & Gynecology; Visit Provider Obstetrics & Gynecology
DX: Z34.03 Encounter for supervision of normal first pregnancy, third trimester (principal); Z3A.38 38 weeks gestation of pregnancy
CPT/HCPCS: 99213; G0463

== ENCOUNTER 2025-01-05 15:26 | Observation (INO) | payer MEDICAID, SELFPAY ==
[2025-01-05] VITALS (12 sets, daily range): BP systolic 117–128; BP diastolic 62–82; PULSE 81–88; RESP 16–98; TEMP 36.8; O2SAT 98; BMI 40.2
[2025-01-05 16:21] LABS: Collection Type, Urine Clean Catch
[2025-01-05 16:27] LABS: Basophils # (Auto) 0.0 Thou/mm3 (0.0-0.2); Basophils % (Auto) 0 % (0-2.5); Eosinophils # (Auto) 0.1 Thou/mm3 (0.0-0.5); Eosinophils % (Auto) 1 % (0-10); Hematocrit 38.8 % (36.0-46.0); Hemoglobin 13.1 g/dL (12.0-16.0); Immature Granulocytes Auto 0.04 Thou/mm3 (0.00-0.00); Lymphocytes # (Auto) 2.8 Thou/mm3 (1.0-4.8); Lymphocytes % (Auto) 29 % (10-50); Mean Corpuscular HGB Conc 33.8 g/dl (31.0-37.0); Mean Corpuscular Hemoglobin 27.5 pg (25.0-35.0); Mean Corpuscular Volume 82 fL (80-100); Monocytes # (Auto) 0.5 Thou/mm3 (0.0-0.8); Monocytes % (Auto) 5 % (0-12); Neutrophils # (Auto) 6.1 Thou/mm3 (1.8-7.7); Neutrophils % (Auto) 64 % (37-80); Nucleated Red Blood Cell # 0.00 Thou/mm3 (0.00-0.00); Nucleated Red Blood Cell % 0 /100 WBC (0); Platelet Count 270 Thou/mm3 (140-440); RDW Standard Deviation 40.7 fL (36.4-46.3); Red Blood Count 4.76 Miln/mm3 (4.00-5.20); White Blood Count 9.6 Thou/mm3 (3.6-11.0)
[2025-01-05 16:46] LABS: Creatinine,Random Urine 241 mg/dL (30-125); Protein Total, Random Urine 49 mg/dL (1-14)
[2025-01-05 16:51] LABS: Alanine Aminotransferase 25 U/L (10-49); Albumin, Serum 4.1 gm/dL (3.5-5.0); Albumin/Globulin Ratio 1.5 (1.2-2.2); Alkaline Phosphatase 163 U/L (46-116); Anion Gap 14 (7-16); Aspartate Amino Transferase 28 U/L (0-34); BUN/Creatinine Ratio 11 Ratio (12-20); Bilirubin,Total 0.6 mg/dL (0.3-1.2); Blood Urea Nitrogen 8 mg/dL (9-23); Calcium 9.1 mg/dL (8.3-10.6); Calcium (Corrected) 9.1 mg/dL (8.5-10.1); Carbon Dioxide 20.5 mMol/L (20.0-31.0); Chloride 106 mMol/L (98-107); Creatinine (Component) 0.7 mg/dL (0.6-1.3); Estimated Creatinine Clearance 144.9 mL/min (>60); Globulin 2.8 gm/dL (2.3-3.5); Glucose 78 mg/dL (74-106); LDH (Lactate Dehydrogenase) 192 U/L (120-246); Osmolality,Calculated 276 (275-295); Potassium 3.8 mMol/L (3.4-5.1); Sodium 140 mMol/L (136-145); Total Protein 6.9 gm/dL (5.7-8.2); Uric Acid 5.0 mg/dL (3.1-7.8); eGFR > 60 See Note
[2025-01-05 17:24] LABS: Fibrinogen 624 mg/dL (175-375); INR 0.9 (0.9-1.3); Partial Thromboplastin Time 25.3 Seconds (22.0-36.0); Prothrombin Time 10.3 Seconds (9.0-12.2)
[2025-01-05 17:26] LABS: Bilirubin,Urine Negative (Negative); Blood,Urine 3+ (Negative); Clarity,Urine Turbid (Clear/Hazy); Color,Urine Yellow (Lt Yel-Yel); Glucose, Urine Negative (Negative); Ketones,Urine Trace (Negative); Leukocyte Esterase,Urine Positive (Negative); Nitrite,Urine Negative (Negative); PH,Urine 5.5 (5.0-7.0); Protein,Urine 1+ (Neg - Trace); RBC,Urine 16 /hpf (0-3); Specific Gravity,Urine 1.030 (1.001-1.035); Squamous Epithelial Cell,Urine 11 /hpf (0-5); Urobilinogen,Urine 2.0 mg/dL (0.0-1.0); WBC,Urine 56 /hpf (0-5)
== END 2025-01-05 17:50 | disposition home or self-care (01) ==
PROVIDERS: Admitting Provider Obstetrics & Gynecology; Visit Provider Obstetrics & Gynecology
DX: O26.893 Other specified pregnancy related conditions, third trimester (principal); Z3A.38 38 weeks gestation of pregnancy; R03.0 Elevated blood-pressure reading, without diagnosis of hypertension
CPT/HCPCS: 36415; 59025; 59899; 80053; 81001; 82570; 83615; 84156; 84550; 85025; 85384; 85610; 85730; 86850; 86900; 86901

== ENCOUNTER 2025-01-07 14:07 | Outpatient (AMB) | payer MEDICAID, SELFPAY ==
[2025-01-07 14:39] VITALS: BP 132/82; PULSE 71; RESP 16; TEMP 36.7; O2SAT 98; BMI 40.4
--- NOTE | 2025-01-07 14:39 | AMB.OBVISIT ---
Vital Signs 01/07/25 14:39 Height 1.63 m Height Method Stated Weight 106.821 kg Weight Measurement Method Standing Scale BMI 40.4 BP 132/82 H Blood Pressure Source Automatic Cuff Blood Pressure Location Left Upper Arm Position Sitting Respiration 16 Pulse 71 Pulse Source Monitor Temp 98.1 F Temp Source Oral Pulse Oximetry (%) 98 Oxygen Delivery Method Room Air Allergies/Home Meds Allergies & Medications Allergies No Known Allergies Allergy (Verified 01/07/25 14:40) Medication Reconciliation vits no.126-ferrous fum 28 mg iron-folic acid 800 mcg tablet (Classic ) tab PO 11/17/24 [History Confirmed 01/07/25] Intake Visit Data Collection New Patient or Established: Established Patient (seen at [facility] within 3 years) Reason for Visit:: CARE Seen by Clinical Staff ONLY (RN/MA): No Automobile Rental Representative Required: No Do You Feel Safe at Home: Yes Authorities Contacted: N/A PCP or OBGYN visit in last 3 months: Yes Hx Now: Yes Are you currently on any form of Control: No Pain Present Currently: No Pain Scale Used: Frey-Valenzuela/Numerical Pain scale:: 0 Smoking Status Smoking Status: Never smoker Questionnaires Covid-19 Vaccine Questionnaire Has patient been vacinated for Covid-19 Have you been vacinated for Covid-19: Yes PHQ-9 PHQ-2 Over the last 2 weeks, how often have you been bothered by any of the following problems? 1. Little interest or pleasure in doing things: not at all 2. Feeling down, depressed, or hopeless: not at all Total score: 0 PHQ-9 3. Trouble falling or staying asleep, or sleeping too much: Not at all 4. Feeling tired or having little energy: Not at all 5. Poor appetite or overeating: Not at all 6. Feeling bad about yourself - or that you are a failure or have let yourself or your family down: Not at all 7. Trouble concentrating on things, such as reading the newspaper or watching television: Not at all 8. Moving or speaking so slowly that other people could have noticed? - Or the opposite - being so fidgety or restless that you have been moving around a lot more than usual: not at all 9. Thoughts that you would be better off or of hurting yourself in some way: Not at all Total score: 0 Source: Developed by Drs. Conrad Palomino, Dianne Joseph, Devendra Silverio and colleagues, with an educational caryn from [employer] 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 We will draw missing labs at [facility]. She had a structural survey here in [place] about 2 weeks ago we need to get a hold of the report. 10/15/24 <del>?</del> 27w 0d 103.079 kg (-1921.134 g) 125/80 27 144 active Good movement no contractions no loss of fluids 11/17/24 <del>?</del> 31w 5d 103.873 kg (-1127.348 g) 123/81 32 143 active movement no contractions no vaginal bleeding no loss of fluids 12/03/24 <del>?</del> 34w 0d 104.383 kg (-617.056 g) 121/80 36 137 active Order ultrasound for size greater than dates Good movement no loss of fluids no contractions no vaginal bleeding 12/17/24 <del>?</del> 36w 0d 106.197 kg (+1197.313 g) 128/80 occasional 35 143 active Good movement no contractions no loss of fluids. Check ultrasound size greater than dates. Group B strep performed. 12/30/24 <del>?</del> 37w 6d 106.821 kg (+1821.003 g) 132/85 occasional cephalic 38 156 active 3 -2 80 +FM No UCs, No LOF GBBS- 01/05/25 <del>?</del> 38w 5d 106.821 kg (+1821.003 g) 142/89 occasional cephalic 38 active 4 -2 80 Good movement no contractions no loss of fluid. Patient is still working. No headaches scotomata or right upper quadrant pain. Sent to triage to rule out PIH as blood pressure is up-to-date. 01/07/25 <del>?</del> 39w 0d 106.821 kg (+1821.003 g) 132/82 occasional cephalic 37 active 4.5 -2 90 Good FM. No LOF or VB CHLOÉ Calculator Estimated Delivery Date Method Current WG Current Estimate 01/14/25 Ultrasound #1 39w 0d Expected Delivery Route/Plan G1, P0 Specific Issue/Plans BMI 39 labs on the chart at [facility]. A + \antibody negative\rubella immune\RPR nonreactive\hepatitis B surface antigen negative\hep C negative\HIV negative\Pap normal\GC chlamydia on Pap within normal limits\urinalysis normal Structural survey at [facility] August 27, 2024 within normal limits in our chart. 2-hour glucose challenge test done 09/29/2024 at [facility] and within normal limits Notes Visit Date: 01/07/25 Last Updated by: Mary Cunha (OB Clinic)MD Labor precautions. Off work. Visit Date: 01/05/25 Last Updated by: Mary Cunha (OB Clinic)MD Labor precautions. kick counts. Stripped membranes today. According to ultrasound, 8 pound baby at the due date. According to [facility], 8 pound baby today, suspected 8-1/2 to 9 pound baby at due date. Adequate pelvic outlet. Visit Date: 12/30/24 Last Updated by: Mary Cunha (OB Clinic)MD Discussed labor. Patient will go with flow. Plan will be to strip membranes next week at 39 weeks. Visit Date: 12/17/24 Last Updated by: Mary Cunha (OB Clinic)MD Discussed labor. Patient will go with flow but is leaning towards no epidural. Patient has a large fundal height. Suspected 8 to 8 and half pound baby at her due date. Visit Date: 08/18/24 Last Updated by: Mary Cunha (OB Clinic)MD Has structural survey scheduled. Declines NIPT. Office Procedures OB Clinic LOC & Office Proc's Nursing/Assessment Patient Status: Established Patient OB Clinic Nursing Assessment: Medication Reconciliation, Update PMH in EMR and Vital Signs OB Clinic Coordination of Care: Complex Care and Chronic Disease 1-5, Consent,records obtained, informed consent, Education Simp Pt/Fam, 1 Ins Authorization, Lab and Imaging orders, Results/Orders obtained and Staff clarify orders Special Needs: Heart tones Miscellaneous Interventions: Pelvic no cultures Established Patient Charge Established Patient Point Assignment: 160 Established Patient Point Charge: EP Level 5 (160-above) Assessment & Plan Diagnosis / Problem List (1) : Status: Acute Qualifiers: Weeks of gestation: 39 weeks Qualified Code(s): Z3A.39 - 39 weeks gestation of
== END 2025-01-07 16:01 | disposition home or self-care (01) ==
LOC: HODSOBC 14:07
PROVIDERS: Supervising Provider Obstetrics & Gynecology; Visit Provider Obstetrics & Gynecology
DX: Z34.03 Encounter for supervision of normal first pregnancy, third trimester (principal); Z3A.39 39 weeks gestation of pregnancy
CPT/HCPCS: 99215; G0463

== ENCOUNTER 2025-01-08 03:23 | Inpatient (IN) | payer MEDICAID, SELFPAY ==
[2025-01-08] VITALS (123 sets, daily range): BP systolic 109–175; BP diastolic 55–99; PULSE 48–158; RESP 17–100; TEMP 36.8–38.1; O2SAT 85–100; BMI 40.1
[2025-01-08 04:11] LABS: ROM Kit Lot # 58102387; ROM Swab Mixed By: TA; Rupture of Fetal Membranes Positive (Negative); Swb Mxed in Solvent 1 min? Yes
[2025-01-08] MEDS: RINGERS LACTATED 1000 ML 1,000 ML 100 ML IV ×2 (04:38→17:10)
[2025-01-08 05:09] LABS: Basophils # (Auto) 0.1 Thou/mm3 (0.0-0.2); Basophils % (Auto) 1 % (0-2.5); Eosinophils # (Auto) 0.1 Thou/mm3 (0.0-0.5); Eosinophils % (Auto) 1 % (0-10); Hematocrit 37.9 % (36.0-46.0); Hemoglobin 12.2 g/dL (12.0-16.0); Immature Granulocytes Auto 0.05 Thou/mm3 (0.00-0.00); Lymphocytes # (Auto) 2.7 Thou/mm3 (1.0-4.8); Lymphocytes % (Auto) 21 % (10-50); Mean Corpuscular HGB Conc 32.2 g/dl (31.0-37.0); Mean Corpuscular Hemoglobin 26.8 pg (25.0-35.0); Mean Corpuscular Volume 83 fL (80-100); Monocytes # (Auto) 0.7 Thou/mm3 (0.0-0.8); Monocytes % (Auto) 6 % (0-12); Neutrophils # (Auto) 8.9 Thou/mm3 (1.8-7.7); Neutrophils % (Auto) 71 % (37-80); Nucleated Red Blood Cell # 0.00 Thou/mm3 (0.00-0.00); Nucleated Red Blood Cell % 0 /100 WBC (0); Platelet Count 260 Thou/mm3 (140-440); RDW Standard Deviation 41.5 fL (36.4-46.3); Red Blood Count 4.56 Miln/mm3 (4.00-5.20); White Blood Count 12.5 Thou/mm3 (3.6-11.0)
--- NOTE | 2025-01-08 05:38 | PD.LDHP ---
Documentation for date of: 01/08/25 OB Labor/Induct. HPI History of Present Illness Chief complaint: Ruptured membranes : 1 Para: 0 Term pregnancies: 0 pregnancies: 0 Living children: 0 History of Abortions: Spontaneous and Elective: 0 History of Vaginal deliveries: 0 History of sections: No History of : No Date of last menstrual period: 03/10/25 CHLOÉ: 01/10/25 Gestational Age (weeks): 39 Gestational Age (days): 5 Gestational age based on last menstrual period: -8 History of present illness: The patient is a 24-year-old with all care uncomplicated with [facility] who presented reporting leaking membranes at 1:00 in the morning. Patient was approximately 4 cm dilated on presentation. Group B strep negative History of Present Dating criteria: LMP confirmed by 1st trimester US Adequate Care: Yes Ultrasounds: normal mid trimester US Obstetrical complications: none Medical complications: none Labs Maternal Blood Type: A Pos Labs: Positive: Rubella Titre, Negative: RPR, Hepatitis B, HIV, Chlamydia and Gonorrhea and Unknown: Herpes Type 1, Herpes Type 2 and Group Beta Strep Past Medical History Surgical History SURGICAL: Negative Section Past Medical History Comments PMH COMMENT: Patient has no significant past medical history including no asthma diabetes or hypertension. Meds Home Medications and Allergies Home Medications ?Medication ?Instructions ?Recorded ?Confirmed ?Type vits no.126-ferrous fum tab PO 11/17/24 01/07/25 History 28 mg iron-folic acid 800 mcg tablet (Classic ) Allergies Allergy/AdvReac Type Severity Reaction Status Date / Time No Known Allergies Allergy Verified 01/08/25 05:27 OB Exam Physical Exam Vital signs: Temp Pulse Resp BP Pulse Ox 98.4 F 56 L 18 116/56 L 99 01/08/25 03:30 01/08/25 04:55 01/08/25 03:30 01/08/25 04:55 01/08/25 04:24 Routine Abdominal Exam Abdominal: Present soft Comments: EFW by Robert'gianfranco 8-1/2 pounds Detailed Labor and Delivery Exam Effacement (%): 70 Cervix position: posterior station: -2 Consistency: medium Presentation: Vertex Membranes: intact monitor accelerations: 15x15 monitor decelerations: None 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 Will consider AROM and then augmentation if needed. (1) Qualifiers: Weeks of gestation: 39 weeks Qualified Code(s): Z3A.39 - 39 weeks gestation of
[2025-01-08 07:56] LABS: Syphilis Nonreactive (Nonreactive)
--- NOTE | 2025-01-08 15:38 | PD.LDPN ---
Documentation for date of: 01/08/25 OB Labor Progress Note Pain Control Pain control: tolerating well Pelvic Exam Dilation (cm): 5 Effacement (%): 80 station: -1 Amniotic membrane status: Ruptured Comments: ruptured forbag Contractions Monitor mode: External Contraction frequency: 2.5-4 Contraction duration: 30 Contraction phase: Resting Contraction intensity: Moderate Status status: Category l Assessment and Plan Assessment: active labor Plan OB labor note: continuous present management Comments: Reevaluated at 1800 for Pitocin augmentation CNM Management MD Consulted (describe details below): Yes
[2025-01-08] MEDS: Ampicillin Inj 2,000 MG in SODIUM CHLORIDE 0.9% (POP) 100 ML 200 MG IV (18:34)
[2025-01-08] MEDS: OXYTOCIN in NS 30 units 30 UNIT/500 ML BAG IV (20:31)
[2025-01-08] MEDS: Ampicillin Inj 1,000 MG in SODIUM CHLORIDE 0.9% (Popper) 50 ML 50 MG IV (21:52)
[2025-01-08] MEDS: ACETAMINOPHEN 500 MG TABLET 1000 MG PO (22:50)
[2025-01-08] MEDS: MINERAL OIL 30 ML UDC TOP (23:10)
[2025-01-08] MEDS: OXYTOCIN in NS 20 units 20 UNIT/1,000 ML BAG 125 UNIT IV (23:15)
--- NOTE | 2025-01-08 23:40 | PD.LDDELS ---
Vacuum Assisted Delivery General Patient Counseled by physician:: Yes Informed consent to patient:: Yes Estimated weight:: 3400 g Cervical dilation:: fully dilated station:: +3 position:: OA Molding:: Yes Caput:: No Vacuum Application Vacuum type:: Mityvac Vacuum application:: flexing median Cup Placement Flexion point identified:: Yes Cup approp. for head position:: Yes Maternal tissue excluded:: Yes Vacuum Procedure Number of pulls (contractions):: 2 Number of pop-offs:: 1 Recommended range maintained:: Yes Vacuum reduced between pulls:: Yes Advancement made each pull:: Yes Vacuum successful:: Yes Immediate Evaluation Immediate assessment:: no apparent injury Data (North) Data Hx Section: No : 1 Term: 0 : 0 Livin Abortions: Spontaneous & Theraputic: 0 Delivery Data (North) Labor Data Initiation of labor: Augmentation Induction/Augmentation Agent: Pitocin ROM date: 01/08/25 ROM time: 01:00 Amniotic membrane rupture type: Spontaneous Amniotic fluid description: Clear Delivery Data Onset of labor date: 01/08/25 Onset of labor time: 20:00 Complete dilation date: 01/08/25 Complete dilation time: 22:30 [place] delivery date: 01/08/25 [place] delivery time: 23:14 Placenta delivery date: 01/08/25 Placenta delivery time: 23:15 Stage 1 total time: Labor - Stage 1 Duration 2 hours and 30 minutes Delivered by: Donald Alexisra Delivery nurse: JOSE Callejas nurse: JOSE Banerjee Special Events Director at delivery: No Support person(s) at delivery: FOB AT DELIVERY Other staff at delivery: JOSE PAIZ CNM Delivery Method Delivery method: Normal Vaginal Delivery Presentation: Vertex Anesthesia Type Anesthesia Type: Epidural Placenta Placenta delivery description: Spontaneous Cord blood sent to lab: Yes cord blood collection: Cord Blood Type Episiotomy Episiotomy description: None Umbilical Cord cord description: 3 Vessels Data (North) Data order: 1 's gender: Female Identification band number: [id number] weight (gms): 3555 g Weight (pounds): 7 lbs and 13.4 ozs length: 52.07 cm 1 minute: 8 5 minutes: 9 10 minutes: 9
[2025-01-08] MEDS: TRANEXAMIC ACID 1,000 MG IVPB 1,000 MG/100 ML BAG 200 MG IV (23:47)
[2025-01-09] VITALS (34 sets, daily range): BP systolic 105–139; BP diastolic 58–86; PULSE 73–136; RESP 16–18; TEMP 36.7–37.8; O2SAT 77–100
[2025-01-09] MEDS: ceFAZolin/D5W 2 GM IV 2 GM/100 ML BAG IV ×3 (01:03→16:24)
[2025-01-09] MEDS: IBUPROFEN TAB 400 MG TABLET 800 MG PO (01:40)
[2025-01-09 05:48] LABS: Basophils # (Auto) 0.1 Thou/mm3 (0.0-0.2); Basophils % (Auto) 0 % (0-2.5); Eosinophils # (Auto) 0.0 Thou/mm3 (0.0-0.5); Eosinophils % (Auto) 0 % (0-10); Hematocrit 31.6 % (36.0-46.0); Hemoglobin 10.5 g/dL (12.0-16.0); Immature Granulocytes Auto 0.08 Thou/mm3 (0.00-0.00); Lymphocytes # (Auto) 2.0 Thou/mm3 (1.0-4.8); Lymphocytes % (Auto) 11 % (10-50); Mean Corpuscular HGB Conc 33.2 g/dl (31.0-37.0); Mean Corpuscular Hemoglobin 27.3 pg (25.0-35.0); Mean Corpuscular Volume 82 fL (80-100); Monocytes # (Auto) 1.0 Thou/mm3 (0.0-0.8); Monocytes % (Auto) 6 % (0-12); Neutrophils # (Auto) 14.7 Thou/mm3 (1.8-7.7); Neutrophils % (Auto) 83 % (37-80); Nucleated Red Blood Cell # 0.00 Thou/mm3 (0.00-0.00); Nucleated Red Blood Cell % 0 /100 WBC (0); Platelet Count 219 Thou/mm3 (140-440); RDW Standard Deviation 42.2 fL (36.4-46.3); Red Blood Count 3.84 Miln/mm3 (4.00-5.20); White Blood Count 17.9 Thou/mm3 (3.6-11.0)
--- NOTE | 2025-01-09 06:45 | PD.LDPPPRG ---
Subjective Subjective Interval history: No complaints of pain. No dizziness. Bonding and breast-feeding Exam Vital Signs Temp Pulse Resp BP Pulse Ox O2 Del Method 99.1 F 96 18 121/75 97 Room Air 01/09/25 04:15 01/09/25 04:15 01/09/25 04:15 01/09/25 04:15 01/09/25 04:15 01/09/25 04:15 Narrative Exam Vital signs stable afebrile. Breast is soft. Fundus firm below with umbilicus. Perineum intact no swelling no redness. Small lochia. Uterus well involuted. Negative Homans' sign. 2+ DTRs Objective Labs 01/09/25 05:40 Labs: Laboratory Results - last 24 hr 01/08/25 01/09/25 04:30 05:40 WBC 17.9 H D RBC 3.84 L Hgb 10.5 L Hct 31.6 L MCV 82 MCH 27.3 MCHC 33.2 RDW Std Deviation 42.2 Plt Count 219 D Neut % (Auto) 83 H Lymph % (Auto) 11 Sandoval % (Auto) 6 Eos % (Auto) 0 Baso % (Auto) 0 Neut # (Auto) 14.7 H Lymph # (Auto) 2.0 [place] # (Auto) 1.0 H Eos # (Auto) 0.0 Baso # (Auto) 0.1 Immature Gran # (Auto) 0.08 H Absolute Nucleated RBC 0.00 Immature Gran % 0 Nucleated RBC % 0 Syphilis Serology Nonreactive Assessment & Plan Problem List (1) : Status: Acute Assessment Comment Assessment comment: 24 hr pp Plan Comment Plan Comment: Discharge home with baby. Continue vitamins and iron. Tylenol ibuprofen for pain. Danger signs. Return in 3 weeks visit. Increase fluids and rest. Discussed signs and symptoms of infection and ER precautions. Discussed wound care. Sitz bath's twice a day. We will hold discharge for tomorrow morning. Time Spent With Patient Time: Total time spent is greater than 50% in coordination of care (as documented) at patient's floor/unit and/or counseling patient:
--- NOTE | 2025-01-09 06:47 | ESDS_ITS ---
DS: Providers Provider Date of admission: 01/08/25 04:23 Primary care physician: Physician No Primary/Family Admitting Provider: Mary Cunha MD ([facility]) Attending Provider on Admission: Clarisse Pro CNM Consults: 01/09/25 00:44 Referral Routine Comment: Attending Provider on DC: Clarisse Pro CNM Discharging Provider: Clarisse Pro CNM DS: Diagnosis Problem List Completed Was Problem List Reviewed/Reconciled?: Yes Summary/Hosp Course Brief History: The patient is a 24-year-old with all care uncomplicated with [facility] who presented reporting leaking membranes at 1:00 in the morning. Patient was approximately 4 cm dilated on presentation. Group B strep negative Peripartum Data Delivery Method: Normal Vaginal Delivery Episiotomy Description: None Laceration Description: yes (vaginal) and no complications: none and uterine atony (manual removal of blood clots) Time Spent with Patient Time attestation: Total time spent providing and/or coordinating discharge services: Exam Vital Signs Temp Pulse Resp BP Pulse Ox O2 Del Method 99.1 F 96 18 121/75 97 Room Air 01/09/25 04:15 01/09/25 04:15 01/09/25 04:15 01/09/25 04:15 01/09/25 04:15 01/09/25 04:15 Discharge Plan Plan Patient Disposition: HOME (Self Care) Patient condition on transfer: Stable Prescriptions/Referrals Prescriptions/Med Rec: No Action Classic 28 mg iron- 800 mcg tablet 1 tab PO .q day Referrals: No Primary/Family,Physician [Primary Care Provider] Patient/Caregiver Discharge Instructions Meds to Beds: No Discharge Activity: resume usual activities Print Language: Greenlandic Activity Restrictions/Additional Instructions: Discharge home with baby. Continue vitamins and iron. Tylenol or ibuprofen for pain. Discussed danger signs and symptoms and ER precautions. Discussed signs symptoms of infection. Increase fluids and rest. Return in 3 weeks for visit. Discussed sitz bath twice a day and wound care. Hold discharge until 913. Stand Alone Forms: Tia Award Info., Patient Portal Info Letter Discharge Order Discharge Orders: Discharge (Routine); Ordered 01/09/25 Ordered By: Clarisse Pro Planned Discharge Date 01/09/25
[2025-01-09] MEDS: DOCUSATE SOD 100 MG CAPSULE PO (08:46)
[2025-01-10] MEDS: ceFAZolin/D5W 2 GM IV 2 GM/100 ML BAG IV ×2 (00:21→08:13)
[2025-01-10 03:49] VITALS: BP 117/79; PULSE 58; RESP 16; TEMP 36.7; O2SAT 99
[2025-01-10 08:00] VITALS: BP 117/79; PULSE 58; RESP 16; TEMP 36.5; O2SAT 99
[2025-01-10] MEDS: DOCUSATE SOD 100 MG CAPSULE PO (08:13)
--- NOTE | 2025-01-10 09:36 | PD.LDPPPRG ---
Subjective Subjective Interval history: No complaints of pain. No dizziness. Breast-feeding. Exam Vital Signs Temp Pulse Resp BP Pulse Ox O2 Del Method 98.1 F 58 L 16 117/79 99 Room Air 01/10/25 03:49 01/10/25 03:49 01/10/25 03:49 01/10/25 03:49 01/10/25 03:49 01/10/25 03:49 Narrative Exam Vital signs stable afebrile. Breasts are soft. Fundus firm below the mellitus. Perineum intact no swelling. Small lochia. Uterus well involuted. Lacerations healing. No signs of infection. Negative Homans' sign. 2+ DTRs Objective Labs 01/09/25 05:40 Assessment & Plan Problem List (1) : Status: Acute Assessment Comment Assessment comment: 24-hour Plan Comment Plan Comment: Discharge home with baby. Continue vitamins and iron. Tylenol ibuprofen for pain. Danger signs. Return in 3 weeks visit. Discussed sitz bath's and comfort measures for perineal tear discussed signs and symptoms of infection and ER precautions. Return in 3 weeks for check Time Spent With Patient Time: Total time spent is greater than 50% in coordination of care (as documented) at patient's floor/unit and/or counseling patient:
[2025-01-10] MEDS: DIPHTH,PERTUSS(ACELL),TET VAC 0.5 ML SYR- ADULT IMi (14:50)
== END 2025-01-10 15:20 | disposition home or self-care (01) | DRG 560 ==
LOC: S4SX 15:38 → S4NX 01-09 01:56
PROVIDERS: Obstetrics & Gynecology; Admitting Provider Obstetrics & Gynecology; Visit Provider Obstetrics & Gynecology
DX: O42.02 Full-term premature rupture of membranes, onset of labor within 24 hours of rupture (principal); Z3A.39 39 weeks gestation of pregnancy; Z37.0 Single live birth; O62.2 Other uterine inertia; Z23 Encounter for immunization
CPT/HCPCS: 36415; 59025; 59409; 84112; 85025; 86780; 86850; 86900; 86901; 90715; 94762; J0290; J0689; J2590; J2795; J3490; J7050; J7120; A9270

== ENCOUNTER 2025-02-04 08:32 | Outpatient (AMB) | payer MEDICAID, SELFPAY ==
[2025-02-04 08:42] VITALS: BP 111/72; PULSE 57; RESP 17; TEMP 36.4; O2SAT 97; BMI 36.6
--- NOTE | 2025-02-04 08:42 | AMBOBPPN_ITS ---
Vital Signs 02/04/25 08:42 Height 1.63 m Height Method Stated Weight 96.615 kg Weight Measurement Method Standing Scale BMI 36.6 BP 111/72 Blood Pressure Source Automatic Cuff Blood Pressure Location Right Upper Arm Position Sitting Respiration 17 Pulse 57 L Pulse Source Monitor Temp 97.5 F Temp Source Temporal Artery Scan Pulse Oximetry (%) 97 Oxygen Delivery Method Room Air Allergies/Home Meds Allergies & Medications Allergies No Known Allergies Allergy (Verified 02/04/25 08:45) Medication Reconciliation vits no.126-ferrous fum 28 mg iron-folic acid 800 mcg tablet (Classic ) 1 tab PO .q day 11/17/24 [History Confirmed 02/04/25] norethindrone 1.5 mg-ethinyl estradiol 30 mcg(21)/iron 75 mg(7) tablet (Loestrin Fe 1.5/30 (28-Day)) 1 tab PO QDAY #84 tabs 02/12/25 [Rx] Intake Visit Data Collection New Patient or Established: Established Patient (seen at [facility] within 3 years) Reason for Visit:: 4 weeks Seen by Clinical Staff ONLY (RN/MA): No Compliance And Control Analyst Required: No Do You Feel Safe at Home: Yes Authorities Contacted: N/A PCP or OBGYN visit in last 3 months: Yes Date of Last PCP or OBGYN visit: 01/10/25 Hx Now: No Are you currently on any form of Control: No Pain Present Currently: No Pain Scale Used: Frey-Valenzuela/Numerical Pain scale:: 0 Smoking Status Smoking Status: Never smoker Questionnaires Covid-19 Vaccine Questionnaire Has patient been vacinated for Covid-19 Have you been vacinated for Covid-19: No Social History Living Situation History Marital Status: Single Lives With: Family Housing: House Tobacco History Smoking Status: Never smoker Second Hand Smoke Exposure: No Alcohol History Alcohol Intake: Never Substance Use History Substance Use: NO Domestic Abuse History Do You Feel Safe at Home: Yes EPDS - PP Depression Screening [place] Pospartum Depression Screen I have been able to laugh and see the funny side of things: (0) As much as I always could I have looked forward with enjoyment to things: (0) As much as I ever did I have blamed myself unnecessarily when things went wrong: (0) No, never I have been anxious or worried for no good reason: (0) No, not at all I have felt scared or panicky for no very good reason: (0) No, not at all Things have been getting on top of me: (0) No, I have been coping as well as ever I have been so unhappy that I have had difficulty sleeping: (0) No, not at all I have felt sad or miserable: (0) No, not at all I have been so unhappy that I have been crying: (0) No, never The thought of harming myself has occurred to me: (0) Never Total Score: EPDS Score: Referral is indicated for score of 9 or more, suicidal, or if provider believes patient is depressed regardless of score.: 0 EPDS completed yes Care OB Visit Log OB Flowsheet Initial Weight: 105 kg Date -?-?-?-?-?-?-?-?-?-?-?-?- EGA Weight BP Alb Glu CTX Pres Fundal ht FHR Mov Dilation Station Effacement Hx Notes Visit Note 06/09/24 -?-?-?-?-?-?-?-?-?-?-?-?- 8w 5d 105.007 kg (+6.633 g) 137/88 130 07/16/24 -?-?-?-?-?-?-?-?-?-?-?-?- 14w 0d 104.78 kg (-220.163 g) 123/84 140 08/18/24 -?-?-?-?-?-?-?-?-?-?-?-?- 18w 5d 103.136 kg (-1864.435 g) 133/84 20 150 active 09/17/24 -?-?-?-?-?-?-?-?-?-?-?-?- 23w 0d 105.29 kg (+290.128 g) 133/81 24 143 active Good movement no contractions bleeding. We will draw missing labs at [facility]. She had a structural survey here in [place] about 2 weeks ago we need to get a hold of the report. 10/15/24 -?-?-?-?-?-?-?-?-?-?-?-?- 27w 0d 103.079 kg (-1921.134 g) 125/80 27 144 active Good movement no contractions no loss of fluids 11/17/24 -?-?-?-?-?-?-?-?-?-?-?-?- 31w 5d 103.873 kg (-1127.348 g) 123/81 32 143 active movement no contractions no vaginal bleeding no loss of fluids 12/03/24 -?-?-?-?-?-?-?-?-?-?-?-?- 34w 0d 104.383 kg (-617.056 g) 121/80 36 137 active Order ultrasound for size greater than dates Good movem ent no loss of fluids no contractions no vaginal bleeding 12/17/24 -?-?-?-?-?-?-?-?-?-?-?-?- 36w 0d 106.197 kg (+1197.313 g) 128/80 occasional 35 143 activ e Good movement no contractions no loss of fluids. Check ultrasound size greater than dates. Group B strep performed. 12/30/24 -?-?-?-?-?-?-?-?-?-?-?-?- 37w 6d 106.821 kg (+1821.003 g) 132/85 occasional cephalic 38 156 active 3 -2 80 +FM No UCs, No LOF GBBS- 01/05/25 -?-?-?-?-?-?-?-?-?-?-?-?- 38w 5d 106.821 kg (+1821.003 g) 142/89 01/07/25 -?-?-?-?-?-?-?-?-?-?-?-?- 39w 0d 106.821 kg (+1821.003 g) 132/82 CHLOÉ Calculator Estimated Delivery Date Method Current WG Current Estimate 01/14/25 Ultrasound #1 44w 1d Expected Delivery Route/Plan G1, P0 Specific Issue/Plans BMI 39 labs on the chart at [facility]. A + \antibody negative\rubella immune\RPR nonreactive\hepatitis B surface antigen negative\hep C negative\HIV negative\Pap normal\GC chlamydia on Pap within normal limits\urinalysis normal Structural survey at [facility] August 27, 2024 within normal limits in our chart. 2-hour glucose challenge test done 09/29/2024 at [facility] and within normal limits Notes Visit Date: 01/07/25 Last Updated by: Mary Cunha (OB Clinic)MD Labor precautions. Off work. Visit Date: 01/05/25 Last Updated by: Mary Cunha (OB Clinic)MD Labor precautions. kick counts. Stripped membranes today. According to ultrasound, 8 pound baby at the due date. According to [place], 8 pound baby today, suspected 8-1/2 to 9 pound baby at due date. Adequate pelvic outlet. Visit Date: 12/30/24 Last Updated by: Mary Cunha (OB Clinic)MD Discussed labor. Patient will go with flow. Plan will be to strip membranes next week at 39 weeks. Visit Date: 12/17/24 Last Updated by: Mary Cunha ([facility] Clinic)MD Discussed labor. Patient will go with flow but is leaning towards no epidural. Patient has a large fundal height. Suspected 8 to 8 and half pound baby at her due date. Visit Date: 08/18/24 Last Updated by: Mary Cunha ([facility] Clinic)MD Has structural survey scheduled. Declines NIPT. HPI Interval History: THe patient underwent an uncomplicated bt Dr Avnedano 01/08/25 and was discharged from the hospital 01/10/25. 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 No pp depression. No anxiety. Tired but coping well. FOB involved. Exam General Limitations: no limitations General Appearance: alert, in no apparent distress, comfortable, cooperative, healthy appearing and well groomed Chest Chest inspection: Present normal inspection and symmetric chest wall rise Resp Respiratory exam: Present normal lung sounds bilaterally Card Cardiovascular exam: Present regular rate, normal rhythm and normal heart sounds Abdominal Abdominal exam: Present soft and normal bowel sounds Extremities Extremities exam: Present normal inspection and full ROM Psych Psychiatric exam: Present normal affect and normal mood Skin Skin exam: Present warm, dry, intact and normal color Office Procedures OBC Clinic LOC & Office Proc's Nursing/Assessment Patient Status: Established Patient OB Clinic Nursing Assessment: Medication Reconciliation, Update PMH in EMR and Vital Signs OB Clinic Coordination of Care: Complex Care and Chronic Disease 1-5, Education Complex Pt/Fam, Consent,records obtained, informed consent and Staff clarify orders Established Patient Charge Established Patient Point Assignment: 90 Established Patient Point Charge: EP Level 3 (80-115) Antepartum Initial or Follow-up Antepartum Initial Visit: Yes Assessment & Plan Diagnosis / Problem List (1) Routine Follow-Up: Plan: OK to resume intercourse at 6 weeks. OCPs with next cycle. Condoms for the daria month on OCPs (2) care following vaginal delivery: Status: Acute Care Reviewed delivery summary and any complications: Yes Uterus involuted to: 6 week size Perineal / incision healing noted: Yes Screened for depression: Yes Depression counseling provided: No Discussed family planning & contraception: Yes Contraception planned: OCPs Counseling on safe resumption of sexual activity: Yes Counseling on gradual excercise: Yes Discussed and concerns (describe), provided support: No Referred to autism motor specialist: No Counseled on good nutrition, hydration, and self care: Yes Reviewed vaccine status: No Chronic & current problems reconciled on problem list: Yes Additional follow up plans: one year for pap and pelvic exam care discussed; questions answered: sleep Follow up: routine/prn (FP) 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
== END 2025-02-04 09:42 | disposition home or self-care (01) ==
LOC: HODSOBC 08:32
PROVIDERS: Supervising Provider Obstetrics & Gynecology; Visit Provider Obstetrics & Gynecology
DX: Z39.2 Encounter for routine postpartum follow-up (principal)
CPT/HCPCS: 59425; 99213; G0463